=== PATIENT | female | born 1950 | race Caucasian/White ===

== ENCOUNTER 2023-04-18 11:45 | Inpatient (IN) | payer MEDICARE, SELFPAY ==
[2023-04-15 21:00] VITALS: BP 98/64
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
[2023-04-15 21:12] LABS: % Basophils 0.2 % (0-2); % Eosinophils 1.7 % (0-6); % Immature Granulocytes 0.6 % (0-0.5); % Lymphocytes 8.2 % (20.5-51.1); % Neutrophils 80.3 % (42.2-75.2); Absolute Eosinophils 0.2 10^3/uL (0-0.7); Absolute Immature Granulocytes 0.1 10^3/uL (0-0.05); Absolute Lymphocytes 0.7 10^3/uL (1.2-3.4); Absolute Monocytes 0.8 10^3/uL (0.1-0.6); Absolute Neutrophils 7.1 10^3/uL (1.4-6.5); Hematocrit 33.8 % (37.0-47.0); Hemoglobin 11.4 g/dL (12.0-16.0); Mean Corp Hgb Conc. 33.7 g/dL (33.0-37.0); Mean Corpuscular Hgb 30.3 pg (27.0-31.0); Mean Corpuscular Volume 89.9 fL (81.0-99.0); Mean Platelet Volume 10.1 fL (7.4-10.4); Nucleated Red Blood Cells % 0 %; Platelet Count 283 10^3/uL (130-400); Red Blood Cell Count 3.76 10^6/uL (4.20-5.40); Red Cell Dist. Width 14.7 % (11.5-14.5); White Blood Cell Count 8.8 10^3/uL (4.8-10.8)
[2023-04-15 21:35] LABS: ALT (SGPT) 169 U/L (0-35); AST (SGOT) 198 U/L (14-36); Albumin 3.4 g/dl (3.5-5.0); Alkaline Phosphatase 131 U/L (38-126); Blood Urea Nitrogen 18 mg/dl (7-17); Calcium 9.3 mg/dl (8.4-10.2); Carbon Dioxide 25 mmol/L (22-30); Chloride 104 mmol/L (98-107); Glucose 123 mg/dl (70-99); Potassium 3.6 mmol/L (3.5-5.1); Sodium 136 mmol/L (135-145); Total Bilirubin 0.7 mg/dl (0.2-1.3); Total Protein 6.8 g/dl (6.3-8.2); eGFR > 60.00
[2023-04-15 22:00] VITALS: BP 99/66
[2023-04-15 22:02] LABS: Urine Albumin Trace (Neg - Trace); Urine Bilirubin 1+ (Negative); Urine Character Very Cloudy (Clear); Urine Color Yellow; Urine Glucose Negative (Negative); Urine Ketone Trace (Negative); Urine Leukocyte Trace (Negative); Urine Nitrite Negative (Negative); Urine Occult Blood Negative (Negative); Urine Urobilinogen 1+ (Neg - 1+)
[2023-04-15 22:08] LABS: Urine Bacteria Many (Negative); Urine Red Blood Cell 0-2 /HPF (0-2); Urine White Cell 0-2 /HPF (0-5)
[2023-04-15 22:45] VITALS: BP 102/58
--- NOTE | 2023-04-15 22:52 | HPS.HSE ---
Addendum entered and electronically signed by Juanito Jacinto MD 04/16/23 00:27:
I saw and examined the patient.
The CHIP LOFT WORKER or PA's note was reviewed and I agree with the note.
Comment:
Patient is 72 years old with history of COPD, chronic respiratory failure, diabetes, GERD who came to the ER with a change in status.
[facility]
X-ray shows concern for pneumonia but the patient denies coughing, no recent fever or chills.
Was given Zithromax and Rocephin in the ER.
Physical exam:
GENERAL : Patient is awake, alert, oriented x3
HEENT: Nonicteric sclerae, PERRLA, EOMI. Oropharynx clear. Moist mucous membranes. Conjunctivae appear well perfused.
CHEST: Chest wall is nontender.
HEART: Regular rate and rhythm without murmurs.
LUNGS: Diminished breath sound bilateral
ABDOMEN: Soft, positive bowel sounds, nontender, no organomegaly.
RECTAL: Deferred.
SKIN: No rash, no excessive bruising, petechiae, or purpura.
NEUROLOGIC: Cranial nerves II-XII intact without motor/sensory deficit
Assessment/plan.
Acute metabolic cephalopathy possible secondary to hypoxia.
Treated for pneumonia but patient does not have clinical sign of pneumonia.
Continue Zithromax and Rocephin for now.
Elevated LFTs.
Ammonia level pending.
History of hyperlipidemia
Continue statin
Original Note:
Family Physician
-
Family Physician: Kylie Greenwood
Chief Complaint
-
sob
History of Present Illness
72 year old with PMH for chronic respiratory failure, COPD< DM, GERD, presented to us with change in MS. she was sent in due to confusion. she was taking [facility] oxygen off at [facility]. at present she is oriented. she knows where she is. she is able
to answer questions appropriately. patient denied BRUNER, dizzy or syncopal episode. denied fever, chills, runny nose congestion, cough. denied abdominal pain, nv,d. denied dysuria or hematuria. stated sob with activity. she uses 5l baseline at nursing
home.
chest x ray with mild pneumonia. received ceftriaxone and zithro in ER. admitting for further management.
Medical History
Past Medical History
Past Medical History: Reports Other
Additional Past Medical History:
COPD, Hypercholesterolemia and Hypothyroidism
Past Surgical History: Reports Other
Additional Past Surgical History:
cataract surgery
Social History
Tobacco: Former Smoker
Alcohol: None
Drug: None
Living: Senior Living
Family History
Family History: Not pertinent
Allergies / Home Medications
Allergies reflects when Allergies were last updated in [email or web address].
Home Medications with original date entered in [email or web address]
Allergy/Medication List:
Allergies
Allergy/AdvReac Type Severity Reaction Status Date / Time
banana Allergy 'shakes Verified 06/17/22 07:07
real bad'
tetracycline Allergy 'pass out Verified 06/17/22 07:07
and shake'
Home Medications
alendronate 70 mg tablet (Fosamax) 70 mg PO SA OSTEOPOROSIS 06/17/22
alprazolam 0.5 mg tablet (Xanax) 0.5 mg PO TID Mental Health/Anxiety 06/17/22
atorvastatin 80 mg tablet (Lipitor) 80 mg PO HS High cholesterol 06/17/22
cyanocobalamin (vitamin B-12) 1,000 mcg tablet 1,000 mcg PO DAILY Supplement 06/17/22
fluticasone fur. 100 mcg-umeclid 62.5 mcg-vilant 25 mcg inhalat.powder (Trelegy Ellipta) 1 inh inhalation R DAILY Lung/breathing issues 06/17/22
folic acid 1 mg tablet 1 mg PO DAILY Supplement 06/17/22
guaifenesin 100 mg/5 mL oral liquid 200 mg PO Q6HPRN PRN cough 06/17/22
levothyroxine 50 mcg tablet (Synthroid) 50 mcg PO DAILY Thyroid 06/17/22
loperamide 2 mg tablet 2 mg PO Q6HPRN PRN diarrhea 06/17/22
pantoprazole 40 mg tablet,delayed release (Protonix) 40 mg PO DAILY Gastrointestinal issue 06/17/22
potassium chloride 20 mEq tablet,extended release 20 meq PO DAILY Electrolyte Repletion 06/17/22
sertraline 100 mg tablet 100 mg PO DAILY Depression 06/17/22
acetaminophen 325 mg tablet (Tylenol) 650 mg PO Q6HPRN PRN mild pain/temp>100F 12/04/22
albuterol sulfate 90 mcg/actuation aerosol inhaler 2 puff inhalation R Q4HPRN PRN sob 12/04/22
cyclobenzaprine 10 mg tablet 10 mg PO BID 12/04/22
food supplemt, lactose-reduced 240 ea PO DAILY 12/04/22
mirtazapine 15 mg tablet (Remeron) 15 mg PO HS 12/04/22
trazodone 50 mg tablet 50 mg PO HS 12/04/22
Review of Systems
-
Constitutional: Reports No Symptoms
EENT: Reports No Symptoms
Respiratory: Reports No Symptoms and Trouble Breathing
Cardiac: Reports No Symptoms
Abdomen/GI: Reports No Symptoms
: Reports No Symptoms
Musculoskeletal: Reports No Symptoms
Skin: Reports No Symptoms
Neurological: Reports No Symptoms
Endocrine: Reports No Symptoms
Hematologic/Lymphatic: Reports No Symptoms
Psych: Reports No Symptoms
Physical Exam
Vital Signs
Vital Signs
Temp Pulse Resp BP Pulse Ox
98.4 F 91 19 99/66 94
04/15/23 20:59 04/15/23 22:45 04/15/23 22:45 04/15/23 22:00 04/15/23 22:45
Physical Exam
General: Well Developed, Well Nourished and No Apparent Distress
HEENT: NormoCephalic, Moist mucous membranes and Atraumatic
Respiratory: Clear
Cardiac: S1/S2 and Regular Rhythm; No Murmur or Rub
GI: Soft, Non Tender, Non Distended and Normal Bowel Sounds; No Organomegaly
Rectal: Deferred by Provider
Musculoskeletal: No Clubbing, No Cyanosis and No Edema
Skin: No Rash
Neuro: AO x 3 and Nonfocal/grossly intact
Psych: Calm
Laboratory Results
-
04/15/23 21:06
04/15/23 21:06
Laboratory Results
Total Bilirubin 0.7 mg/dl (0.2-1.3) 04/15/23 21:06
AST 198 U/L (14-36) H 04/15/23 21:06
ALT 169 U/L (0-35) H 04/15/23 21:06
Alkaline Phosphatase 131 U/L (38-126) H 04/15/23 21:06
Data Reviewed
-
Diagnostic Radiology: Report Reviewed by me
Lab Data: Labs Reviewed by me
Impression/Plan
-
#metabolic encephalopathy likely from hypoxia from pulling oxygen concern for pneumonia but no clinical findings
-Chronic hypoxic respiratory failure uses 5l baseline
-hxt of COPD, not in acute exacerbation
-head CT with No acute intracranial abnormality noted.Mild atrophy. Stable wall
-chest x ray with Mild opacification of the right costophrenic angle concerning for pneumonia. Improved.Flattening of the diaphragms suggesting COPD. Improved.
-zithro and ceftriaxone continued
-Tylenol prn for fever
-ctm
-continue supplemental oxygen to keep sat >92
-wean as tolerated
-nebs prn for sob/wheezing
#acute on chronic elevated LFTs unclear cause
-ast 198,alt 169, alk 131
-obtain ammonia level
-denied abdominal pain
-continue trend LFT's
Hypercholesterolemia
-Continue statin
#anxiety
-Xanax prn
-Remeron, sertraline, trazodone continued
Hypothyroidism
-Continue levothyroxine check TSH
#DVT prophylaxis with Lovenox
#DNR
[2023-04-15] MEDS: ZITHROMAX INFUSION 250 IV (22:56)
[2023-04-15] MEDS: ROCEPHIN 1000 MG IV (22:56)
[2023-04-15 23:00] VITALS: BP 97/83
[2023-04-15 23:30] VITALS: BP 111/98
[2023-04-16 00:27] LABS: Ammonia < 9 umol/L (9-30)
[2023-04-16 00:58] VITALS: BP 94/77; BMI 13.1
[2023-04-16] MEDS: SYNTHROID 50 MCG PO (06:14)
[2023-04-16 06:58] LABS: Hematocrit 30.5 % (37.0-47.0); Hemoglobin 10.1 g/dL (12.0-16.0); Mean Corp Hgb Conc. 33.1 g/dL (33.0-37.0); Mean Corpuscular Hgb 29.8 pg (27.0-31.0); Mean Platelet Volume 10.1 fL (7.4-10.4); Platelet Count 274 10^3/uL (130-400); Red Blood Cell Count 3.39 10^6/uL (4.20-5.40); Red Cell Dist. Width 14.6 % (11.5-14.5); White Blood Cell Count 9.1 10^3/uL (4.8-10.8)
[2023-04-16 07:00] VITALS: BP 96/58
[2023-04-16 07:22] LABS: ALT (SGPT) 141 U/L (0-35); AST (SGOT) 148 U/L (14-36); Albumin 2.9 g/dl (3.5-5.0); Alkaline Phosphatase 122 U/L (38-126); Blood Urea Nitrogen 16 mg/dl (7-17); Calcium 8.7 mg/dl (8.4-10.2); Carbon Dioxide 23 mmol/L (22-30); Chloride 108 mmol/L (98-107); Estimated Creatinine Clearance 44 ml/min; Glucose 107 mg/dl (70-99); Potassium 3.7 mmol/L (3.5-5.1); Sodium 136 mmol/L (135-145); Total Bilirubin 0.4 mg/dl (0.2-1.3); eGFR > 60.00
[2023-04-16] MEDS: SYMBICORT 80/4.5 MCG INHALER 2 PUFF INH ×2 (07:38→19:09)
[2023-04-16] MEDS: SPIRIVA RESPIMAT 2.5 MCG 2 PUFF INH (07:38)
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
[2023-04-16] MEDS: FLEXERIL 10 MG PO ×2 (08:07→21:59)
[2023-04-16] MEDS: PROTONIX 40 MG PO (08:07)
[2023-04-16] MEDS: KCL 20 MEQ PO (08:07)
[2023-04-16] MEDS: ZOLOFT 100 MG PO (08:08)
[2023-04-16 10:46] VITALS: BMI 13.1
--- NOTE | 2023-04-16 11:25 | W.PN.HOSP.TC ---
Today's Communication/Plan
-
AB
Speech eval
Hepatitis panel
Hold Statin
Follow LFTS
Assessment / Plan
Assessment / Plan
72-year-old with mental status change. Patient was taking her oxygen off at group home she uses 2 L of oxygen at group home
Cachectic
CVS S1 S2 Normal
Chest decreased
Awake and alert
Pleasant confused.
# TME- possibly from hypoxia
Ammonia level less than [address] without any acute changes-mild atrophy
#Chest x-ray with opacification of right CP angle concerning for pneumonia
Continue Zithromax and ceftriaxone
Speech evaluation
Oxygen supplementation
Aspiration precautions
As needed nebulizer treatments, also on Trelegy Ellipta
#History of COPD with chronic hypoxic respiratory failure on 2 L of oxygen at baseline
# Elevated LFTs-continue to follow trend
Ultrasound of the abdomen without any acute changes
Check hepatitis serologies
# Anemia likely from chronic disease
# Hyperlipidemia-hold statin
# Anxiety-depression
Continue Xanax as needed
Also on Remeron, sertraline, trazodone
# Hypothyroidism-continue Synthroid
# GERD-PPI
# Cognitive dysfunction- per KIRSTEN
# Diet-controlled diabetes
# Insomnia on trazodone
# Osteoporosis on Fosamax
# Hypoalbuminemia
# Ex Smoker
# DVT prophylaxis-Lovenox
# DNR status
Called brother spoke to KIRSTEN , updated.
Anticipated Discharge: 24 - 48 hours
Subjective/Interval History
-
Date of Service: April 16, 2023
Objective Data
-
Labs:
Laboratory Results
04/16/23
06:24
WBC 9.1
Hgb 10.1 L
Hct 30.5 L
Plt Count 274
Sodium 136
Potassium 3.7
Chloride 108 H
Carbon Dioxide 23
BUN 16
Creatinine 0.5 L
Glucose 107 H
Calcium 8.7
Total Bilirubin 0.4
AST 148 H
ALT 141 H
Alkaline Phosphatase 122
Vital Signs:
Vital Signs
Temp Pulse Resp BP Pulse Ox
98.2 F 86 20 96/58 98
04/16/23 07:00 04/16/23 08:01 04/16/23 08:01 04/16/23 07:00 04/16/23 08:01
--- NOTE | 2023-04-16 14:03 | PTOTSP ---
ST Dysphagia evaluation
Mild/functional oral dysphagia; edentulous. Has GERD dx; no reflux-like s/sx observed
Pt received awake/alert oriented x2-3 with visual cue. HOB raised upright for PO trials of puree, regular solids and thin liquids. PM meal at the bedside good appetite. Demo adequate oral access/containment, mildly extended yet effective mastication
and bolus was orally cleared. Thin liquids by straw sip swallow appears prompt. No overt s/sx of aspiration observed during this evaluation
Recommend
1. Continue regular solids/thin liquids
2. Standard aspiration and GERD precautions and meal set up assist as needed
3. Meds per pt preference and RN discretion
4. MEDICAL RECORDS MANAGER signing off please reconsult as needed
[2023-04-16 15:00] VITALS: BP 89/52
--- NOTE | 2023-04-16 15:10 | CM ---
Reviewed chart, placed a call to patient's brother and sister in law to obtain information for assessment. Patient's sister in law answered and stated that she could talk. 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
confirm a bed hold.
Per patient's sister in law, patient is dependent with her ADLs, personal care, dressing and bathing. She does not ambulate but does have a walker. She sleeps in a recliner.
Patient's sister in law confirmed that she would like for [facility] to [facility] to [facility] upon medical clearance and expressed that they have transportation. If they are unable to p/u will need to call obtain an ambulance.
Patient's sister in law requested that GOMEZ letter be emailed to her at [email or web address].
Plan: Case management will continue to follow and assist with discharge planning. Patient to return to [facility] when she is cleared medically.
[2023-04-16 15:19] LABS: Hepatitis B Surface Antigen Negative (Negative)
[2023-04-16 15:36] LABS: Hepatitis B Core Ab, Total Negative (Negative); Hepatitis B Surface Antibody Negative; Hepatitis C Antibody Negative (Negative)
[2023-04-16 17:03] LABS: Hepatitis A Antibody, Total Borderline (Negative)
[2023-04-16 17:51] LABS: Hepatitis A IgM Antibody Negative (Negative)
[2023-04-16] MEDS: LOVENOX 30 MG SC (17:55)
[2023-04-16] MEDS: DESYREL 50 MG PO (21:59)
[2023-04-16] MEDS: ROCEPHIN 1000 MG IV (21:59)
[2023-04-16] MEDS: STERILE WATER FOR INJECTION 10 ML IV (21:59)
[2023-04-16] MEDS: REMERON 15 MG PO (21:59)
[2023-04-16] MEDS: ZITHROMAX 500 MG PO (21:59)
[2023-04-16 23:44] VITALS: BP 100/59
[2023-04-17] MEDS: SYNTHROID 50 MCG PO (06:06)
[2023-04-17 07:37] LABS: Hematocrit 33.8 % (37.0-47.0); Hemoglobin 11.2 g/dL (12.0-16.0); Mean Corp Hgb Conc. 33.1 g/dL (33.0-37.0); Mean Corpuscular Hgb 29.9 pg (27.0-31.0); Mean Corpuscular Volume 90.4 fL (81.0-99.0); Platelet Count 288 10^3/uL (130-400); Red Blood Cell Count 3.74 10^6/uL (4.20-5.40); Red Cell Dist. Width 14.6 % (11.5-14.5); White Blood Cell Count 9.2 10^3/uL (4.8-10.8)
[2023-04-17 07:51] VITALS: BP 104/61
[2023-04-17 08:05] LABS: ALT (SGPT) 156 U/L (0-35); AST (SGOT) 166 U/L (14-36); Albumin 3.2 g/dl (3.5-5.0); Alkaline Phosphatase 146 U/L (38-126); Blood Urea Nitrogen 19 mg/dl (7-17); Calcium 9.1 mg/dl (8.4-10.2); Carbon Dioxide 23 mmol/L (22-30); Chloride 107 mmol/L (98-107); Estimated Creatinine Clearance 44 ml/min; Glucose 73 mg/dl (70-99); Potassium 3.9 mmol/L (3.5-5.1); Sodium 138 mmol/L (135-145); Total Bilirubin 0.6 mg/dl (0.2-1.3); Total Protein 6.3 g/dl (6.3-8.2); eGFR > 60.00
[2023-04-17] MEDS: SYMBICORT 80/4.5 MCG INHALER 2 PUFF INH ×2 (08:37→18:29)
[2023-04-17] MEDS: SPIRIVA RESPIMAT 2.5 MCG 2 PUFF INH (08:37)
[2023-04-17] MEDS: FLEXERIL 10 MG PO ×2 (09:19→21:22)
[2023-04-17] MEDS: KCL 20 MEQ PO (09:20)
[2023-04-17] MEDS: ZOLOFT 100 MG PO (09:20)
[2023-04-17] MEDS: PROTONIX 40 MG PO (09:20)
--- NOTE | 2023-04-17 11:27 | W.PN.HOSP.TC ---
Today's Communication/Plan
-
GI eval
CT A/P
Assessment / Plan
Assessment / Plan
72-year-old with mental status change. Patient was taking her oxygen off at senior living she uses 2 L of oxygen at senior living
Cachectic
CVS S1 S2 Normal
Chest decreased
Awake and alert
Pleasant confused.
# TME- possibly from hypoxia
Ammonia level less than [address] without any acute changes-mild atrophy
#Chest x-ray with opacification of right CP angle concerning for pneumonia
Continue Zithromax and stop ceftriaxone
Speech evaluation
Oxygen supplementation still on 2 L
Aspiration precautions
As needed nebulizer treatments, also on Trelegy Ellipta
#History of COPD with chronic hypoxic respiratory failure on 2 L of oxygen at baseline
# Elevated LFTs-continue to follow trend
Ultrasound of the abdomen without any acute changes
Hepatitis serologies- Neg
GI eval
# Anemia likely from chronic disease
# Hyperlipidemia-hold statin
# Anxiety-depression
Continue Xanax as needed
Also on Remeron, sertraline, trazodone
# Hypothyroidism-continue Synthroid
# GERD-PPI
# Cognitive dysfunction- per KIRSTEN
# Severe Protein Calorie Malnutrition
# Diet-controlled diabetes
# Insomnia on trazodone
# Osteoporosis on Fosamax
# Hypoalbuminemia
# Ex Smoker
# DVT prophylaxis-Lovenox
# DNR status
Anticipated Discharge: Within 24 hours
Subjective/Interval History
-
Date of Service: April 17, 2023
Objective Data
-
Labs:
Laboratory Results
04/17/23
07:09
WBC 9.2
Hgb 11.2 L
Hct 33.8 L
Plt Count 288
Sodium 138
Potassium 3.9
Chloride 107
Carbon Dioxide 23
BUN 19 H
Creatinine 0.6
Glucose 73
Calcium 9.1
Total Bilirubin 0.6
AST 166 H
ALT 156 H
Alkaline Phosphatase 146 H
Vital Signs:
Vital Signs
Temp Pulse Resp BP Pulse Ox
97.9 F 88 20 104/61 96
04/17/23 07:51 04/17/23 08:45 04/17/23 08:45 04/17/23 07:51 04/17/23 08:45
I&O
04/16/23 04/17/23 04/18/23
06:59 06:59 06:59
Intake Total 480 / 480
Balance 480 / 480
--- NOTE | 2023-04-17 11:47 | CON.GI ---
Addendum entered and electronically signed by Abhijeet Witt MD 04/18/23 08:38:
I saw and examined the patient. Pt seen on 04/18/23 at 6:45 am
The [employer] or PA's note was reviewed and I agree with the note.
Comment:
This patient is a 72-year-old woman who was sent from her nursing facility due to change in mental status. She been found taking off her oxygen at the time. We are being called for abnormal liver test with transaminases in the 100 range and a
mildly elevated alkaline phosphatase.. The patient denies any liver abnormalities or diseases in the past. She does state that she believes she may have had elevated test in the past. She is completely oriented. She did have both an ultrasound
and CAT scan in the hospital which did not show any issues with the liver. Her ammonia is normal.
abd: soft, nontender, no hepatomegaly
oriented
Impression:
change in mental status
abnormal lfts
plan:
1. change in MS resolved and not likely due to liver issues
2. abnl liver test: likely chronic, full w/u sent
normal iron studies back, hep A igM back others pending
can f/u with primary or outpatient for this.
will sign off call with questions.
Original Note:
Consultation
-
Date/Time Consultation Requested: 04/17/23
Date/Time Consultation Performed: 04/17/23 @ 11:45
Requesting Provider: Dr. Rodas
Performing Provider: DAPHNEY Almanza; Dr. Witt
Reason for Consultation: abnormal LFT's
Medical History
Chief Complaint / HPI
Chief Complaint: taking off oxygen, acute mental status change
History of Present Illness:
The patient is a 72-year-old female with a past medical history significant for chronic COPD/chronic respiratory failure on chronic oxygen at 2 L, GERD, type 2 diabetes, osteoporosis, hyperlipidemia, hypothyroidism, depression, anxiety, who
presented to the emergency room from her nursing facility with altered mental status. We are being asked to evaluate for abnormal LFTs. The patient is somewhat confused therefore the medical records were utilized for the HPI. She presented from
her nursing facility with increased confusion after being found to be repeatedly taking off her oxygen which she wears chronically. The patient denies any history of liver disease such as fatty liver, liver cirrhosis, or hepatitis. She denies any
abdominal pain, fevers, or chills. She does not recall feeling unwell prior to coming to the emergency room. She does note that she was confused and is forgetful of the events leading up to her hospitalization she otherwise denies any
constipation, diarrhea, melena, hematochezia, hematemesis, chest pain, shortness of breath, dysphagia, nausea, or vomiting. She notes that she can get nauseated with certain medications and will occasionally vomit but no recent symptoms. She
reports that her weight does fluctuate and she has been on the smaller side chronically. She denies any alcohol use. She is a former smoker and quit 5 years ago. She reports her last colonoscopy was several years ago but does not remember where
this was done. Admits to history of polyps. She denies any new medications or recent antibiotic use prior to admission. Upon evaluation in the emergency room she was oriented to herself and able to answer questions appropriately. She underwent
CT imaging of the head which was negative for acute intracranial abnormalities. Her ammonia level was less than 9 on admission. She underwent a chest x-ray which showed questionable pneumonia and was started on azithromycin and ceftriaxone. She
also underwent an ultrasound of the abdomen for abnormal LFTs which was unrevealing. Hepatitis serologies were sent which were negative. Her urinalysis was also negative. Notable labs include total bilirubin 0.6, AST 166, ALT 158, alk phos 146,
BUN 19, creatinine 0.6, albumin 3.2, WBC 9.2, hemoglobin 11.2, platelets 288,000, sodium 138, potassium 3.9. She is pending CT of the abdomen and pelvis with IV and oral contrast for further evaluation. Notable with a BMI of 13.1
Past Medical History
Past Medical History: COPD (Chronic respiratory failure on chronic oxygen), GERD, HTN, Hypercholesterolemia, NIDDM, Psychiatric (Depression/anxiety) and Other (Osteoporosis)
Past Surgical History: Orthopedic (Bilateral hip replacement) and Other (Cataract surgery)
Social History
Tobacco: Former Smoker
Alcohol: None
Drug: None
Living: Shelter
Family History
Family History: Reviewed & Not Pertinent
Allergies / Home Medications
Allergy/AdvReac Type Severity Reaction Status Date / Time
banana Allergy 'shakes Verified 06/17/22 07:07
real bad'
tetracycline Allergy 'pass out Verified 06/17/22 07:07
and shake'
Medication Instructions Recorded
alendronate 70 mg tablet (Fosamax) 70 mg PO SA OSTEOPOROSIS 06/17/22
alprazolam 0.5 mg tablet (Xanax) 0.5 mg PO TID Mental Health/Anxiety 06/17/22
atorvastatin 80 mg tablet (Lipitor) 80 mg PO HS High cholesterol 06/17/22
cyanocobalamin (vitamin B-12) 1,000 mcg PO DAILY Supplement 06/17/22
1,000 mcg tablet
fluticasone fur. 100 mcg-umeclid 1 inh inhalation R DAILY 06/17/22
62.5 mcg-vilant 25 mcg Lung/breathing issues
inhalat.powder (Trelegy Ellipta)
folic acid 1 mg tablet 1 mg PO DAILY Supplement 06/17/22
guaifenesin 100 mg/5 mL oral liquid 200 mg PO Q6HPRN PRN cough 06/17/22
levothyroxine 50 mcg tablet 50 mcg PO DAILY AT 0700 Thyroid 06/17/22
(Synthroid)
loperamide 2 mg tablet 2 mg PO Q6HPRN PRN diarrhea 06/17/22
pantoprazole 40 mg tablet,delayed 40 mg PO DAILY Gastrointestinal 06/17/22
release (Protonix) issue
potassium chloride 20 mEq 20 meq PO DAILY Electrolyte 06/17/22
tablet,extended release Repletion
sertraline 100 mg tablet 100 mg PO DAILY Depression 06/17/22
acetaminophen 325 mg tablet 650 mg PO Q6HPRN PRN mild 12/04/22
(Tylenol) pain/temp>100F
albuterol sulfate 90 mcg/actuation 2 puff inhalation R Q4HPRN PRN sob 12/04/22
aerosol inhaler
cyclobenzaprine 10 mg tablet 10 mg PO BID Muscle Spasms 12/04/22
food supplemt, lactose-reduced 240 ea PO DAILY Supplement 12/04/22
mirtazapine 15 mg tablet (Remeron) 15 mg PO HS mental health/sleep 12/04/22
trazodone 50 mg tablet 50 mg PO HS mental health/sleep 12/04/22
Review of Systems
-
History Source: Patient
Constitutional: Reports No Symptoms
EENT: Reports No Symptoms
Respiratory: Reports Trouble Breathing (Chronic)
Cardiac: Reports No Symptoms
Abdomen/GI: Reports Nausea (Occasional) and Vomiting (Occasional)
: Reports No Symptoms
Musculoskeletal: Reports No Symptoms
Skin: Reports No Symptoms
Neurological: Reports No Symptoms
Vital Signs
Temp Pulse Resp BP Pulse Ox
97.9 F 88 20 104/61 96
04/17/23 07:51 04/17/23 08:45 04/17/23 08:45 04/17/23 07:51 04/17/23 08:45
Physical Exam
Exam
General: Comfortable and Other (Cachectic, chronically ill-appearing female in no acute distress)
HEENT: Normocephalic, Anicteric and Atraumatic
Respiratory: Non Labored Respirations and Other (Diminished breath sounds bilaterally, supplemental O2 in place)
Cardiac: S1/S2 and Regular Rhythm
Breast: Deferred by me
GI: Soft, Non Tender, Non Distended, Normal Bowel Sounds and Flat
Musculoskeletal: No Edema
Skin: Warm and Dry
Neuro: Awake, Alert and Other (Oriented to self and time, disoriented to place)
Psych: Calm
Results
WBC 9.2 10^3/uL (4.8-10.8) 04/17/23 07:09
Hgb 11.2 g/dL (12.0-16.0) L 04/17/23 07:09
Hct 33.8 % (37.0-47.0) L 04/17/23 07:09
MCV 90.4 fL (81.0-99.0) 04/17/23 07:09
Plt Count 288 10^3/uL (130-400) 04/17/23 07:09
Absolute Neuts (auto) 7.1 10^3/uL (1.4-6.5) H 04/15/23 21:06
Sodium 138 mmol/L (135-145) 04/17/23 07:09
Potassium 3.9 mmol/L (3.5-5.1) 04/17/23 07:09
Chloride 107 mmol/L (98-107) 04/17/23 07:09
Carbon Dioxide 23 mmol/L (22-30) 04/17/23 07:09
BUN 19 mg/dl (7-17) H 04/17/23 07:09
Creatinine 0.6 mg/dL (0.6-1.0) 04/17/23 07:09
Calcium 9.1 mg/dl (8.4-10.2) 04/17/23 07:09
Total Bilirubin 0.6 mg/dl (0.2-1.3) 04/17/23 07:09
AST 166 U/L (14-36) H 04/17/23 07:09
ALT 156 U/L (0-35) H 04/17/23 07:09
Alkaline Phosphatase 146 U/L (38-126) H 04/17/23 07:09
Hepatitis A IgM Ab Negative (Negative) 04/16/23 06:24
Hepatitis A Ab Total Borderline (Negative) 04/16/23 06:24
Hep Bs Antibody Negative 04/16/23 06:24
Hep B Core Total Ab Negative (Negative) 04/16/23 06:24
Hep B Core IgM Ab Cancelled 04/16/23 06:24
Hepatitis C Antibody Negative (Negative) 04/16/23 06:24
Diagnostic Image Results:
04/15/23 CT head: no acute intracranial abnormalities
04/16/2023 Us abdomen: no acute abnormalities
Prior GI Procedures:
EGD: None
Colonoscopy: Patient reports colonoscopy done in the last several years with history of polyps. Report not on file
Assessment / Plan
-
The patient is a 72-year-old female with a past medical history significant for chronic COPD/chronic respiratory failure on chronic oxygen at 2 L, GERD, type 2 diabetes, osteoporosis, hyperlipidemia, hypothyroidism, depression, anxiety, who
presented to the emergency room from her nursing facility with altered mental status. We are being asked to evaluate for abnormal LFTs. She had noted change of mental status taking her oxygen off at the nursing facility. ER workup showing
possible pneumonia on chest x-ray. CT of the brain was negative for acute findings. Ammonia level less than 9. Ultrasound imaging the abdomen did not show any significant findings. Noted with mildly elevated AST, ALT, and alk phos (with some
chronicity of elevation in the past). Started on Zithromax and Rocephin for pneumonia. Hepatitis serologies negative. UA negative. No prior history of liver disease, alcohol use, or hepatitis per patient.
Problem list:
-Altered mental status
-Abnormal LFTs
-Chest x-ray with findings concerning for pneumonia
-Severe calorie deficit/malnutrition
-Chronic COPD/respiratory failure on chronic oxygen
Other pertinent medical history:
-Hyperlipidemia
-Hypothyroidism
-Depression/anxiety
-GERD
-Type 2 diabetes
-Osteoporosis
Recommendations:
-Etiology of abnormal LFTs unclear. There does appear to be somewhat chronic elevation of LFTs. Possibly related to severe malnutrition versus underlying liver disease versus acute elevation with infectious process versus other.
--- Ultrasound of the abdomen showing no abnormalities of the liver or biliary system. She declines any history of hepatitis or alcohol use.
-Await CT imaging of the abdomen and pelvis
-Will add underlying liver disease workup
-Hepatitis serologies negative
-Avoid hepatotoxins as able
-Will likely need further workup outpatient.
-Infectious workup and management as per hospitalist
-Consider ABG with history of COPD if ongoing confusion, defer to hospitalist
-Consider nutrition consult with BMI of 13. Likely in part related to her chronic lung disease
-Will follow
-
-
Thank you for consultation and allowing me to participate in the patient's care. Please call the director phone GI physician during the after hours with any questions or concerns.
[2023-04-17] MEDS: OMNIPAQUE 50 ML PO (12:08)
[2023-04-17 14:30] LABS: Iron 52 ug/dl (37-170)
[2023-04-17 14:39] LABS: Percent Saturation 23 % (20-50); Total Iron Binding Capacity 226 ug/dl (265-497)
[2023-04-17 16:29] VITALS: BP 108/64
[2023-04-17] MEDS: LOVENOX 30 MG SC (17:45)
[2023-04-17] MEDS: XANAX 0.5 MG PO (17:48)
[2023-04-17] MEDS: CEFTIN 500 MG PO (21:22)
[2023-04-17] MEDS: DESYREL 50 MG PO (21:22)
[2023-04-17] MEDS: ZITHROMAX 500 MG PO (21:22)
[2023-04-17] MEDS: REMERON 15 MG PO (21:22)
[2023-04-17 23:35] VITALS: BP 104/56
[2023-04-18 06:07] VITALS: BMI 12.7
[2023-04-18] MEDS: SYNTHROID 50 MCG PO (06:14)
[2023-04-18 06:31] VITALS: BMI 12.7
[2023-04-18 07:26] VITALS: BP 91/60
[2023-04-18] MEDS: SYMBICORT 80/4.5 MCG INHALER 2 PUFF INH ×2 (07:53→20:04)
[2023-04-18] MEDS: SPIRIVA RESPIMAT 2.5 MCG 2 PUFF INH (07:53)
[2023-04-18] MEDS: PROTONIX 40 MG PO (08:33)
[2023-04-18] MEDS: FLEXERIL 10 MG PO ×2 (08:33→20:16)
[2023-04-18] MEDS: KCL 20 MEQ PO (08:33)
[2023-04-18] MEDS: ZOLOFT 100 MG PO (08:33)
[2023-04-18] MEDS: CEFTIN 500 MG PO ×2 (08:33→20:16)
[2023-04-18 09:08] LABS: Direct Bilirubin 0.2 mg/dl (0.0-0.4)
[2023-04-18 11:05] VITALS: BP 94/57; PULSE 84; O2SAT 99
--- NOTE | 2023-04-18 11:42 | W.PN.HOSP.TC ---
Today's Communication/Plan
-
Discharge
Assessment / Plan
Assessment / Plan
72-year-old with mental status change. Patient was taking her oxygen off [facility] she uses 2 L [facility] oxygen [facility]
Cachectic
CVS S1 S2 Normal
Chest decreased
Awake and alert
Pleasant confused.
# TME- possibly from hypoxia
Back to baseline
Ammonia level less than [address] without any acute changes-mild atrophy
#Chest x-ray with opacification of right CP angle concerning for pneumonia
Continue Zithromax and Ceftin for 3 more days
Speech evaluation noted regular diet
Oxygen supplementation still on 2 L, Was on [address]
Sats 97-99 percent
As needed nebulizer treatments, also on Trelegy Ellipta
#History of COPD with chronic hypoxic respiratory failure on 2 L of oxygen at baseline
# Elevated LFTs-
Ultrasound of the abdomen without any acute changes
Hepatitis serologies- Neg
CT scan without any acute changes
Serologies sent for liver
Hold off on statin until LFTs are better
GI eval
# Anemia likely from chronic disease
# Hyperlipidemia-hold statin
# Anxiety-depression
Continue Xanax as needed
Also on Remeron, sertraline, trazodone
# Hypothyroidism-continue Synthroid
# GERD-PPI
# Cognitive dysfunction- per KIRSTEN
# Severe Protein Calorie Malnutrition
[id number] is aware and then states that patient's brother and [id number] have been battling this with the patient. She always ate very poorly.
Ensure for discharge
# Diet-controlled diabetes
# Insomnia on trazodone
# Osteoporosis on Fosamax
# Hypoalbuminemia
# Ex Smoker
# DVT prophylaxis-Lovenox
# DNR status
Discussed with nursing
Discussed with [id number]
Discussed with GI jamil for discharge and outpatient follow-up
D/W Case management
Discussed the patient regarding eating better and follow-up needs.
Discharge time more than 30 minutes
Anticipated Discharge: Today
Subjective/Interval History
-
Date of Service: April 18, 2023
Objective Data
-
Vital Signs:
Vital Signs
Temp Pulse Resp BP Pulse Ox
98 F 74 16 91/60 97
04/18/23 07:26 04/18/23 07:56 04/18/23 07:56 04/18/23 07:26 04/18/23 07:56
I&O
04/17/23 04/18/23 04/19/23
06:59 06:59 06:59
Intake Total 480 / 480 540 / 540
Balance 480 / 480 540 / 540
--- NOTE | 2023-04-18 11:53 | W.DS.TRANS ---
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
-
Discharge Instructions:
Discharge Diagnosis/Procedures TME, hypoxia, pneumonia, COPD, elevated LFTs,
anemia, hyperlipidemia, anxiety depression,
hypothyroidism, GERD, cognitive dysfunction,
severe protein calorie malnutrition, diet-
controlled diabetes, insomnia, osteoporosis,
hypoalbuminemia, spinal canal stenosis L4-L5
with broad-based posterior disc bulge
Diet As tolerated
Activity As tolerated
Driving Restrictions No driving
Others Tests Chest x-ray weeks 4
Other Services PT,OT
Instructions:
Stand-Alone Forms:
Changes to Home Medications: Yes
Discharge Medications:
DC Medications w/original date entered in [employer]
alendronate 70 mg tablet (Fosamax) 70 mg PO SA OSTEOPOROSIS 06/17/22
cyanocobalamin (vitamin B-12) 1,000 mcg tablet 1,000 mcg PO DAILY Supplement 06/17/22
fluticasone fur. 100 mcg-umeclid 62.5 mcg-vilant 25 mcg inhalat.powder (Trelegy Ellipta) 1 inh inhalation R DAILY Lung/breathing issues 06/17/22
folic acid 1 mg tablet 1 mg PO DAILY Supplement 06/17/22
guaifenesin 100 mg/5 mL oral liquid 200 mg PO Q6HPRN PRN cough 06/17/22
levothyroxine 50 mcg tablet (Synthroid) 50 mcg PO DAILY AT 0700 Thyroid 06/17/22
pantoprazole 40 mg tablet,delayed release (Protonix) 40 mg PO DAILY Gastrointestinal issue 06/17/22
potassium chloride 20 mEq tablet,extended release 20 meq PO DAILY Electrolyte Repletion 06/17/22
sertraline 100 mg tablet 100 mg PO DAILY Depression 06/17/22
acetaminophen 325 mg tablet (Tylenol) 650 mg PO Q6HPRN PRN mild pain/temp>100F 12/04/22
albuterol sulfate 90 mcg/actuation aerosol inhaler 2 puff inhalation R Q4HPRN PRN sob 12/04/22
cyclobenzaprine 10 mg tablet 10 mg PO BID Muscle Spasms 12/04/22
food supplemt, lactose-reduced 240 ea PO DAILY Supplement 12/04/22
mirtazapine 15 mg tablet (Remeron) 15 mg PO HS mental health/sleep 12/04/22
trazodone 50 mg tablet 50 mg PO HS mental health/sleep 12/04/22
alprazolam 0.5 mg tablet 0.5 mg PO TID PRN anxiety #6 tabs 04/18/23
azithromycin 250 mg tablet 500 mg PO HS Lung/breathing issues #2 tabs 04/18/23
cefuroxime axetil 500 mg tablet 500 mg PO BID Lung/breathing issues #6 tabs 04/18/23
Home Medication Changes
Statin stopped temporarily
Zithromax Ceftin new
Pending Results: Yes
Additional Pending Results:
Serologies for liver pending, Ceruloplasmin and pending
[2023-04-18] MEDS: MILK OF MAGNESIA 30 ML PO (12:39)
--- NOTE | 2023-04-18 13:04 | CM ---
Addendum entered by Padma Granda 04/18/23 13:13:
Ref # [id number] for attempted auth
Original Note:
Pt medically ready to return to [facility]
Kristina at [facility] made aware
PT recs SNF vs HH - SNF bed available at [facility]
NPI - [id number]
Attending Carlos Leal - NPI - [id number]
Called [facility] to obtain auth - [phone]
utility agent not available on weekend - unable to obtain auth until normal business hours
[2023-04-18 15:43] VITALS: BP 103/67
[2023-04-18] MEDS: LOVENOX 30 MG SC (18:05)
[2023-04-18] MEDS: XANAX 0.5 MG PO (18:12)
[2023-04-18] MEDS: DESYREL 50 MG PO (21:14)
[2023-04-18] MEDS: ZITHROMAX 500 MG PO (21:14)
[2023-04-18] MEDS: REMERON 15 MG PO (21:14)
[2023-04-18 23:35] VITALS: BP 88/47
[2023-04-19] MEDS: TYLENOL 650 MG PO (05:01)
[2023-04-19] MEDS: SYNTHROID 50 MCG PO (05:01)
[2023-04-19 05:59] LABS: IgA 424 mg/dl (70-400)
[2023-04-19 07:00] VITALS: BP 94/57
[2023-04-19] MEDS: CEFTIN 500 MG PO ×2 (07:58→20:52)
[2023-04-19] MEDS: FLEXERIL 10 MG PO ×2 (07:58→20:52)
[2023-04-19] MEDS: PROTONIX 40 MG PO (07:58)
[2023-04-19] MEDS: ZOLOFT 100 MG PO (07:58)
[2023-04-19] MEDS: KCL 20 MEQ PO (07:58)
[2023-04-19] MEDS: SYMBICORT 80/4.5 MCG INHALER 2 PUFF INH ×2 (08:05→20:01)
[2023-04-19] MEDS: SPIRIVA RESPIMAT 2.5 MCG 2 PUFF INH (08:05)
--- NOTE | 2023-04-19 10:15 | W.PN.HOSP.TC ---
Addendum entered and electronically signed by Anu Santiago MD 04/19/23 15:46:
Total DC time 45 minutes
Original Note:
Today's Communication/Plan
-
DC today
Assessment / Plan
Assessment / Plan
72-year-old with mental status change. Patient took her oxygen off at [facility]. She uses 2 L of oxygen at [facility]
Cachectic
CVS S1 S2 Normal
Chest decreased
Awake and alert
Pleasant confused.
A/P:
# TME due to hypoxia
# Chronic hypoxic resp failure on 2L [place]
Replaced O2 2L [place], MS back to baseline
Ammonia level less than [address] without any acute changes-mild atrophy
# CAP
CXR noted Mild opacification of the right costophrenic angle concerning for pneumonia. Improved.
MRSA screen negative
cont Abx total 7 days, cont Zithromax and Ceftin for now
Speech evaluation cleared for regular diet
cont as needed nebulizer treatments, also on Trelegy Ellipta
# History of COPD with chronic hypoxic respiratory failure on 2 L of oxygen at baseline
# Elevated LFTs
Ultrasound of the abdomen without any acute changes
CT AP without any acute changes
Hepatitis serologies- Neg
Liver antibodies can be followed up outpt
Hold off on statin until LFTs are better, check LFT outpt
GI eval
# Chronic Hypotension
Start midodrine 5 mg TID for SBP < 100
# Anemia likely from chronic disease
# Hyperlipidemia-hold statin
# Anxiety/depression
Continue Xanax as needed
Also on Remeron, sertraline, trazodone
# Hypothyroidism-continue Synthroid
# GERD-PPI
# Cognitive dysfunction- per KIRSTEN
# Severe Protein Calorie Malnutrition
Eqbubg-em-zio is aware and then states that patient's brother and [id number]-ak-jyn have been battling this with the patient. She always ate very poorly.
Ensure for discharge
# Diet-controlled diabetes
# Insomnia on trazodone
# Osteoporosis on Fosamax
# Hypoalbuminemia
# Ex Smoker
DVT prophylaxis-Lovenox
DNR status
Discussed with RN
Discussed with [id number]-[id number], updated on the phone
D/W Case management
Anticipated Discharge: Today
Subjective/Interval History
-
Date of Service: April 19, 2023
Objective Data
-
Vital Signs:
Vital Signs
Temp Pulse Resp BP Pulse Ox
36.7 C 76 18 94/57 92
04/19/23 07:00 04/19/23 08:12 04/19/23 08:12 04/19/23 07:00 04/19/23 08:12
I&O
04/18/23 04/19/23 04/20/23
06:59 06:59 06:59
Intake Total 540 / 540 420 / 420
Balance 540 / 540 420 / 420
--- NOTE | 2023-04-19 11:22 | CM ---
Addendum entered by HAROON Meneses 04/19/23 16:46:
Placed a call to patient's insurance and was provided with the reference # [id number] by a credit representative named Shadi. He stated that an RN will call for clinical.
Addendum entered by HAROON Meneses 04/19/23 11:44:
Received return call from admissions at [facility] (Kristina) who stated that patient was independent with her ADLs at the facility and therefore would like for her to be skilled prior to her readmission. Will attempt to obtain prior authorization.
Original Note:
Received notification from attending that patient is medically cleared for discharge. Reviewed CM note from yesterday. Placed a call to assistant sales director, at [facility] to clarify if patient needs an auth. If she is just returning to her apartment she
won't need one.
Plan: Case management will continue to follow and assist with discharge planning. Back to [facility] skilled or ltc, awaiting recommendation from director specialty.
[2023-04-19 15:00] VITALS: BP 95/55
--- NOTE | 2023-04-19 15:26 | W.DCSUMMARY ---
Discharge Summary
Discharge Data
Date of Admission: 04/18/23
Date of Discharge: 04/20/23
-
Pending Results: No
Hospital Course
Principal Diagnosis:
Confusion likely due to hypoxia and community-acquired pneumonia (CAP)
Transaminitis, unclear etiology, continue outpatient GI follow-up
Chronic Diagnoses:�
History of COPD with chronic hypoxic respiratory failure on 2 L of oxygen at baseline
Anemia likely from chronic disease
Hyperlipidemia
Anxiety/depression, on as needed Xanax, Remeron, sertraline, trazodone
Hypothyroidism on Synthroid
Gastroesophageal reflux disease
Cognitive impairment persistent low
Severe Protein Calorie Malnutrition
Diet-controlled diabetes
Insomnia on trazodone
Osteoporosis on Fosamax
Hypoalbuminemia
Ex Smoker
Consultations:�
None
Procedures:�
None
Clinical course:�
This is a 72-year-old female, with past medical history as stated above, who presented with confusion likely due to hypoxia and community-acquired pneumonia.
She was noted taking off her oxygen which she required at baseline.
Problem 1:
Confusion likely due to hypoxia and community-acquired pneumonia.
Of note, the patient has chronic hypoxic respiratory failure and is on 2 L nasal cannula oxygen support at baseline.
She was replaced back on 2 L nasal cannula oxygen support, and her mental status returned to baseline.
Her CT head obtained for confusion workup showed no acute changes, noted mild atrophy.
Her CXR noted mild opacification of the right costophrenic angle concerning for pneumonia.
Her MRSA screen was negative.
She received IV ceftriaxone and oral azithromycin while in the hospital and was discharged with oral Ceftin and azithromycin.
She was cleared by speech therapist to continue regular diet.
Problem 2:
Elevated LFTs.
Her abdominal ultrasound and CT AP showed no acute changes.
Her hepatitis serologies were negative.
Additional liver workup and blood tests (Alpha-1 antitrypsin, ceruloplasmin, IgA, CAITIE, ASMA, endomysial IgG, liver kidney microsomal antibody) were sent. These results are not back yet given they are send out tests.
The patient can follow these results with her PCP/GI outpatient.
She can hold off on statin until her LFTs better.
She can check her LFT outpatient in 1 week.
Problem 3:
Chronic Hypotension
She was started with midodrine 5 mg TID for SBP < 100.
As for the rest of her medical problems, they were stable during her hospital stay.
Discharge Plan
-
Patient Disposition: Group Home/SNF
Discharge Diagnosis/Procedures: Confusion due to hypoxia, community acquired pneumonia, elevated liver enzymes, severe protein calorie malnutrition
Condition: Fair
Diet: As tolerated
Additional Diets: with Ensure supplement 1 can twice daily
Activity: As tolerated
Driving Restrictions: No driving
Blood Work: LFT in 1 week, result to your PCP/GI
Others Tests: Chest x-ray weeks 4
Other Services: PT and OT
Activity Restrictions/Additional Instructions:
Follow up these blood work results outpatient (they were collected due to elevated liver enzymes):
Alpha-1 antitrypsin,
ceruloplasmin,
IgA,
CAITIE,
ASMA,
endomysial IgG,
liver kidney microsomal antibody
Follow-up with GI outpatient for your elevated LFT
Hold statin until LFTs are better.
Dietitian follow-up with long term
Continue Zithromax and Ceftin for 2 more days.
You were started with Midodrine as needed for BP support (take for SBP < 100)
Referrals:
Abhijeet Witt MD [Active] -
Kylie Greenwood MD [Family Provider] -
Additional Discharge Medication Instructions: stop Lipitor
Prescriptions:
New
azithromycin 250 mg Tablet
500 mg PO HS Qty: 2 0RF
alprazolam 0.5 mg Tablet
0.5 mg PO TID PRN (Reason: anxiety) Qty: 6 0RF
cefuroxime axetil 500 mg Tablet
500 mg PO BID Qty: 6 0RF
midodrine 5 mg Tablet
5 mg PO TIDPRN PRN (Reason: for SBP < 100) Qty: 30 0RF
Continued
alendronate [Fosamax] 70 mg Tablet
70 mg PO SA
sertraline 100 mg Tablet
100 mg PO DAILY
cyanocobalamin (vitamin B-12) 1,000 mcg Tablet
1,000 mcg PO DAILY
guaifenesin 100 mg/5 mL Liquid
200 mg PO Q6HPRN PRN (Reason: cough)
levothyroxine [Synthroid] 50 mcg Tablet
50 mcg PO DAILY AT 0700
pantoprazole [Protonix] 40 mg Tablet,Delayed Release (Dr/Ec)
40 mg PO DAILY
folic acid 1 mg Tablet
1 mg PO DAILY
potassium chloride 20 mEq Tablet Extended Release
20 meq PO DAILY
Trelegy Ellipta 100-62.5-25 mcg Blister With Device
1 inh INHALATION R DAILY
cyclobenzaprine 10 mg Tablet
10 mg PO BID
acetaminophen [Tylenol] 325 mg Tablet
650 mg PO Q6HPRN PRN (Reason: mild pain/temp>100F)
trazodone 50 mg Tablet
50 mg PO HS
mirtazapine [Remeron] 15 mg Tablet
15 mg PO HS
albuterol sulfate 90 mcg/actuation Hfa Aerosol Inhaler
2 puff INHALATION R Q4HPRN PRN (Reason: sob)
food supplemt, lactose-reduced Liquid
240 ea PO DAILY
Rx Instructions:
12/04/2022, patient is given 240 ml of this medication one time a day for diet supplement.
Discontinued
atorvastatin [Lipitor] 80 mg Tablet
80 mg PO HS
loperamide 2 mg Tablet
2 mg PO Q6HPRN PRN (Reason: diarrhea)
alprazolam [Xanax] 0.5 mg Tablet
0.5 mg PO TID
Discharge Orders:
Discharge Patient (As Directed); Ordered 04/18/23
Ordered By: Kymberly Rodas
[2023-04-19] MEDS: ProAmatine 5 MG PO (16:00)
[2023-04-19] MEDS: XANAX 0.5 MG PO (16:06)
[2023-04-19] MEDS: LOVENOX 30 MG SC (18:04)
[2023-04-19] MEDS: DESYREL 50 MG PO (20:54)
[2023-04-19] MEDS: REMERON 15 MG PO (20:54)
[2023-04-19] MEDS: ZITHROMAX 500 MG PO (20:54)
[2023-04-19 23:15] VITALS: BP 90/55
[2023-04-20] MEDS: SYNTHROID 50 MCG PO (06:02)
[2023-04-20 07:00] VITALS: BP 93/53
[2023-04-20] MEDS: SYMBICORT 80/4.5 MCG INHALER 2 PUFF INH (08:00)
[2023-04-20] MEDS: SPIRIVA RESPIMAT 2.5 MCG 2 PUFF INH (08:00)
[2023-04-20] MEDS: FLEXERIL 10 MG PO (09:04)
[2023-04-20] MEDS: ZOLOFT 100 MG PO (09:04)
[2023-04-20] MEDS: KCL 20 MEQ PO (09:05)
[2023-04-20] MEDS: CEFTIN 500 MG PO (09:05)
[2023-04-20] MEDS: PROTONIX 40 MG PO (09:05)
[2023-04-20] MEDS: XANAX 0.5 MG PO (09:19)
--- NOTE | 2023-04-20 09:45 | CM ---
Addendum entered by HAROON Meneses 04/20/23 12:52:
Left a voice mail message for patient's listed contact, Sylvain that patient is going back.
Addendum entered by HAROON Meneses 04/20/23 12:08:
Received return call back from Kristina at [facility] who stated that the # for report is [phone]
fax# is [phone]
Visual Stylist updated.
Addendum entered by HAROON Meneses 04/20/23 11:18:
Received notification from Daly at [facility] who stated that patient has been provided with auth# [id number] NRD 04/22/23 clinical should be faxed to [phone] Ref# is [id number]
Will update Kristina in admissions at [facility] and attending.
Original Note:
Received voice mail message from [facility] which stated that the following is needed: Clinical, face sheet, H&P, med list and progress notes as well as any PT/OT from the past two days.
Confirmation #[id number]
Faxed clinical [phone]
Will await determination
Plan: Case management will continue to follow and assist with discharge planning. Hopeful transfer to [facility] SNF upon authorization.
--- NOTE | 2023-04-20 10:58 | W.PN.HOSP.TC ---
Addendum entered and electronically signed by Anu Santiago MD 04/20/23 13:01:
total DC time 35 min
Addendum entered and electronically signed by Anu Santiago MD 04/20/23 12:36:
# �Acute metabolic Encephalopathy has resolved
Original Note:
Today's Communication/Plan
-
DC to SNF today
Assessment / Plan
Assessment / Plan
72-year-old with mental status change. Patient took her oxygen off at correction. She uses 2 L of oxygen at correction
A/P:
# TME due to hypoxia
# Chronic hypoxic resp failure on 2L NC
Replaced O2 2L NC, MS back to baseline
Ammonia level less than [address] without any acute changes-mild atrophy
# CAP
CXR noted Mild opacification of the right costophrenic angle concerning for pneumonia. Improved.
MRSA screen negative
cont Abx total 7 days, cont Zithromax and Ceftin for now
Speech evaluation cleared for regular diet
cont as needed nebulizer treatments, also on Trelegy Ellipta
# History of COPD with chronic hypoxic respiratory failure on 2 L of oxygen at baseline
# Elevated LFTs
Ultrasound of the abdomen without any acute changes
CT AP without any acute changes
Hepatitis serologies- Neg
Liver antibodies test results can be followed up outpt
Hold off on statin until LFTs are better, check LFT outpt
GI eval
# Chronic Hypotension
Started midodrine 5 mg TID for SBP < 100
BP soft likely due to cuff size too big (pt has severe malnutrition)
# Anemia likely from chronic disease
# Hyperlipidemia-hold statin
# Anxiety/depression
Continue Xanax as needed
Also on Remeron, sertraline, trazodone
# Hypothyroidism-continue Synthroid
# GERD-PPI
# Cognitive dysfunction- per KIRSTEN
# Severe Protein Calorie Malnutrition
Ewaopa-or-ksd is aware and then states that patient's brother and [id number] have been battling this with the patient. She always ate very poorly.
Ensure for discharge
# Diet-controlled diabetes
# Insomnia on trazodone
# Osteoporosis on Fosamax
# Hypoalbuminemia
# Ex Smoker
DVT prophylaxis-Lovenox
DNR status
Pt was discharged yesterday, but was kept in the hospital due to pending authorization.
D/W Case management
Anticipated Discharge: Today
Subjective/Interval History
-
Date of Service: April 20, 2023
Objective Data
-
Vital Signs:
Vital Signs
Temp Pulse Resp BP Pulse Ox
36.7 C 82 16 93/53 95
04/20/23 07:00 04/20/23 08:01 04/20/23 08:01 04/20/23 07:00 04/20/23 08:01
I&O
04/19/23 04/20/23 04/21/23
06:59 06:59 06:59
Intake Total 420 / 420 840 / 840
Balance 420 / 420 840 / 840
Review of Systems
-
History Source: Patient
All other systems: Not reviewed unless documented
EENT: Reports No Symptoms Reported
Cardiac: Reports No Symptoms
Physical Exam
-
General: Appears Chronically Ill and Cachectic
HEENT: Normocephalic
Respiratory: Non Labored Respirations; Negative Accessory Resp Muscle Use
Cardiac: Regular Rhythm
GI: Soft, Nontender and Nondistended
Psych: Calm
Data Reviewed
-
Total Time Spent with Patient (in minutes): 35
Diagnostic Radiology: Report Reviewed by me
Labs: Labs Reviewed by me (Potassium 3.1/TSH is suppressed)
[2023-04-20 11:05] VITALS: BP 128/52; PULSE 91; O2SAT 94
--- NOTE | 2023-04-20 11:16 | PN.CDI ---
CDI
- -
CDI:
Physician Documentation Request
Admit Date: 04/18/23 11:45
Dear Doctor Pamela
Patient sent to ED for change in mental status.
H&P states 'acute metabolic encephalopathy...'
Hospitalist progress notes state 'TME- possibly from hypoxia'
Discharge summary states 'Confusion likely due to hypoxia and '
In an attempt to clarify potential conflicting documentation, please clarify the most likely etiology of the confusion/altered mental status.
Acute metabolic Encephalopathy -
Toxic metabolic encephalopathy
Acute or subacute confusional state due to hypoxia and community-acquired pneumonia
Other
Use of terms such as suspected, likely, concern for, or probable (associated with a specific diagnosis that is being evaluated, monitored, or treated as if it exists) are acceptable and can be coded in the inpatient setting, when documented at the
time of discharge.
Thank you,
Kathy Alexander RN, BSN
CDI Specialist
tiger text
Please use your independent medical judgment in providing your response.
[2023-04-20 15:09] LABS: Alpha-1-Antitrypsin 204 mg/dL (90-200); Ceruloplasmin 41 mg/dL (16-45)
[2023-04-20 21:59] LABS: LKM-1 Ab (IgG) 2.1 U (0.0-24.9); Soluble Liver Antigen Ab 3.1 U (0.0-24.9)
[2023-04-21] LABS: Endomysial IgA Antibody Titer <1:10 (<1:10)
[2023-04-21 02:06] LABS: Mitochondrial M2 Ab, IgG 8.4 Units (0.0-24.9)
[2023-04-21 02:24] LABS: ANA, IgG Reflex to HEp-2 Detected (None Detected)
[2023-04-21 14:59] LABS: tTG IgA Antibody 16.3 EU/ml (0-19); tTG IgG Antibody 73.1 EU/ml (0-19)
[2023-04-22 00:59] LABS: ANA, HEp-2, IgG <1:80 (<1:80)
== END 2023-04-20 15:39 | DRG 193 ==
LOC: 3 WEST ACU 11:45
PROVIDERS: Hospitalist; Nurse Practitioner Family; Registered Nurse; ADMITTING PHYSICIAN General Practice; ATTENDING PHYSICIAN Internal Medicine; CONSULT PHYSICIAN Internal Medicine; EMERGENCY PHYSICIAN Emergency Medicine; FAMILY PHYSICIAN Internal Medicine
DX: J18.9 Pneumonia, unspecified organism (principal); E43 Unspecified severe protein-calorie malnutrition; G93.41 Metabolic encephalopathy; J96.11 Chronic respiratory failure with hypoxia; Z68.1 Body mass index [BMI] 19.9 or less, adult; D63.8 Anemia in other chronic diseases classified elsewhere; F32.A Depression, unspecified; F41.9 Anxiety disorder, unspecified; E03.9 Hypothyroidism, unspecified; E11.9 Type 2 diabetes mellitus without complications; E78.00 Pure hypercholesterolemia, unspecified; K21.9 Gastro-esophageal reflux disease without esophagitis; Z66 Do not resuscitate; Z87.891 Personal history of nicotine dependence
CPT/HCPCS: 70450; 71045; 74177; 76700; 80053; 80076; 81003; 81015; 82103; 82140; 82390; 82728; 82784; 83516; 83540; 83550; 85025; 85027; 86038; 86039; 86231; 86376; 86381; 86704; 86706; 86708; 86709; 86803; 87070; 87077; 87086; 87340; 93005; 94640; 96365; 96375; 97163; 97530; 99285; Q9967

== ENCOUNTER → 2023-04-23 13:01 | Outpatient (REF) | payer OTHER, MEDICARE, SELFPAY ==
[2023-04-23 13:56] LABS: Hematocrit 31.7 % (37.0-47.0); Hemoglobin 10.2 g/dL (12.0-16.0); Mean Corp Hgb Conc. 32.2 g/dL (33.0-37.0); Mean Corpuscular Volume 93.2 fL (81.0-99.0); Mean Platelet Volume 10.5 fL (7.4-10.4); Platelet Count 379 10^3/uL (130-400); Red Cell Dist. Width 14.2 % (11.5-14.5); White Blood Cell Count 7.9 10^3/uL (4.8-10.8)
[2023-04-23 14:08] LABS: ALT (SGPT) 67 U/L (0-35); AST (SGOT) 53 U/L (14-36); Albumin 3.1 g/dl (3.5-5.0); Alkaline Phosphatase 130 U/L (38-126); Blood Urea Nitrogen 17 mg/dl (7-17); Calcium 9.3 mg/dl (8.4-10.2); Carbon Dioxide 31 mmol/L (22-30); Chloride 102 mmol/L (98-107); Direct Bilirubin 0.1 mg/dl (0.0-0.4); Glucose 99 mg/dl (70-99); Magnesium 2.1 mg/dl (1.6-2.3); Potassium 4.3 mmol/L (3.5-5.1); Sodium 133 mmol/L (135-145); Total Bilirubin 0.3 mg/dl (0.2-1.3); Total Protein 6.2 g/dl (6.3-8.2); eGFR > 60.00
[2023-04-23 14:23] LABS: Free T4 1.24 ng/dl (0.78-2.19)
[2023-04-24 09:39] LABS: Glycohemoglobin (HgbA1c) 5.8 % (4.0-5.6)
== END ==
LOC: OLABWHC 13:01
PROVIDERS: ATTENDING PHYSICIAN Internal Medicine
DX: G93.41 Metabolic encephalopathy (principal); I10 Essential (primary) hypertension; E11.9 Type 2 diabetes mellitus without complications; E43 Unspecified severe protein-calorie malnutrition; E03.9 Hypothyroidism, unspecified; R74.01 Elevation of levels of liver transaminase levels
CPT/HCPCS: 36415; 80053; 82248; 83036; 83735; 84439; 84443; 85027

== ENCOUNTER 2023-10-27 22:09 | Inpatient (IN) | payer MEDICARE, SELFPAY ==
[2023-10-27] VITALS (11 sets, daily range): BP systolic 98–136; BP diastolic 62–110
--- NOTE | 2023-10-27 19:30 | ED.GENMED ---
History of Present Illness
General
Chief Complaint: Change Level of Consciousness
Source: longterm (isa)
Exam Limitations: altered mental status
Time Seen by Provider: 10/27/23 19:17
History of Present Illness
History of Present Illness:
This is a 73 year old female that comes in by ambulance from [facility]. Spoke with Isa and she said that at 6:30pm her pulse ox was low at 60% and her finger nails were blue. States that they increased her 02 to 4 liters.
States that she was more confused and kline a productive cough. States that her BP was low at 90/50. Denies any fever, chills, chest pain, abd pain, nausea, vomiting, diarrhea, headache, dizziness, urinary burning.
Past History
Past History
ED Past Medical History: COPD, GERD, Hypercholesterolemia, NIDDM, Hypothyroidism, Psychiatric (Anxiety, Panic disorder, Depression, ) and Other ( oxygen dependent, osteoporosis, Torturous aorta arch, Insomnia)
ED Past Surgical History: Orthopedic (Leg fracture, Right hip, ) and Other (cataracts )
Social History
Alcohol: None
Personal:
Living: other (Independent living [facility])
Review of Systems
Review of Systems
Other source history: longterm
All Other Systems: ROS reviewed and negative except as documented in HPI and ROS
Constitutional: Reports no symptoms; Denies fever or chills
EENT: Reports no symptoms
Respiratory: Reports cough and trouble breathing
Cardiac: Denies chest pain
ABD/GI: Reports no symptoms; Denies abdominal pain, nausea, vomiting or diarrhea
: Reports no symptoms
Musculoskeletal: Reports no symptoms
Skin: Reports no symptoms
Neurological: Reports no symptoms; Denies dizzy or headache
Psychiatric: Reports no symptoms
Phy Exam
General Physical Exam
General Presentation: no apparent distress
General age: appears stated age
General Skin: warm and dry
General Habitus: elderly
General Mental: other (Lethargic but awakes and will follow commands)
General Hydration: dry mucous membranes
ENT Exam
ENT Exam: TM's normal, pharynx normal and neck supple
Eye Exam
Eye Exam: EOMI
Cardiovascular Exam
Cardiovascular Exam: regular rate/rhythm, no edema and normal peripheral pulses
Pulmonary Exam
Pulmonary Exam: no respiratory distress, chest non tender, no rhonchi, no wheezing, no cough and decreased breath sounds (Right sided with rales left base)
Gastrointestinal Exam
Gastrointestinal Exam: normal bowel sounds, non tender, soft, no organomegaly, no pulsatile mass and non distended
Musculoskeletal Exam
Musculoskeletal Exam: full ROM and no edema
Skin Exam
Skin Exam: normal color, warm/dry, no rash and no petechia
Psychiatric Exam
Psychiatric Exam: other (Lethargic but awakes to her name and will follow commands)
Course
Orders/Labs/Results
Orders:
Orders
10/27/23 19:28
0.9% Sodium Chloride 1000 ml [Nss] 1,000 ml IV BOLUS
10/27/23 19:29
CT Head W/o Iv Contrast Urgent
Comment:
Reason For Exam: Change in mental status
10/27/23 19:30
Straight cath- Treatment ONCE
10/27/23 19:38
COVID-19 Antigen Urgent
Source: Nasal Swab
Complete Blood Count/With Diff Urgent
Comprehensive Metabolic Panel Urgent
Lactate Level [Lactic Acid] Urgent
TSH Reflex To Free T4 Urgent
Troponin I Urgent
Urinalysis Reflex To Culture Urgent
Date Specimen was Collected: 10/27/23
Time Specimen was Collected: 19:36
10/27/23 19:44
CR Chest - 2 Views Urgent
Comment:
Reason For Exam: SOB
10/27/23 19:45
Electrocardiogram (*1) Urgent
Reason for Study: Shortness of Breath
EKG- Treatment ONCE
10/27/23 20:36
Potassium Chloride [KCl] 40 meq 0.9% Sodium Chloride 250 ml [Nss] 250 ml IV NOW
10/27/23 21:06
Add On- LAB Urgent
Tests Added?: Magnesium
10/27/23 21:09
Add On- LAB Urgent
Tests Added?: Serum osm
Add On- LAB Urgent
Tests Added?: Urine potassium, Urine osm
Abnormal Lab Results
10/27/23
19:38
WBC 11.4 H 10^3/uL
(4.8-10.8)
RBC 3.85 L 10^6/uL
(4.20-5.40)
Hgb 11.9 L g/dL
(12.0-16.0)
Hct 34.9 L %
(37.0-47.0)
Absolute Neuts (auto) 10.1 H 10^3/uL
(1.4-6.5)
Absolute Lymphs (auto) 0.6 L 10^3/uL
(1.2-3.4)
Neutrophils % 88.4 H %
(42.2-75.2)
Lymphocytes % 5.0 L %
(20.5-51.1)
Potassium 2.4 L* mmol/L
(3.5-5.1)
BUN 20 H mg/dl
(7-17)
Creatinine 0.5 L mg/dL
(0.6-1.0)
Glucose 174 H mg/dl
(70-99)
10/27/23 19:38
10/27/23 19:38
WBC slightly elevated. H/H slightly low. Dehydration. Hyperglycemia, Hypokalemia, TSH 0.63, Lactic acid normal at 1.0, Urine negative for infection. COVID negative. Tropnoin <0.012
Vital Signs
Initial and Last Documented VS:
Initial Vital Signs
Temp Pulse Resp BP Pulse Ox
98.9 F 96 16 119/63 82
10/27/23 19:15 10/27/23 19:15 10/27/23 19:15 10/27/23 19:15 10/27/23 19:15
Last Documented Vital Signs
Temp Pulse Resp BP Pulse Ox
98.9 F 91 19 136/110 95
10/27/23 19:15 10/27/23 21:00 10/27/23 21:00 10/27/23 21:00 10/27/23 21:00
MDM/Problems Addressed
Differential Diagnosis Includes:
Change in mental status, UTI
MDM/Problems Addressed:
This is a 73 year old female that is brought in by ambulance with c/o change in mental status. Called and spoke with Isa. States that at 6:30pm when they went in her room Her pulse ox was only 60% to they increased her oxygen to 4 liters. States
that she was more confused then normal and she had a productive cough. States that her fingers were blue and her HR was 102. States that her BP was 90/50.
will check labs, get urine CT head and give IV fluids.
will admit patient as abnormal labs. Patient may need a higher level or care. Hospitalist notified
Chronic conditions affecting care: Psychiatric illness
Acute Exacerbation and/or Progression of Chronic Illness: Psychiatric illness
*Radiology
Radiology exam reviewed: radiology read reviewed (Chest-NO convincing acute cardiopulmonary process. Head CT-No acute intracranial abnormality noted. )
*Pulse Oximetry
Patient hypoxic: no
*EKG
Interpreted by ED Provider?: Yes
Heart Rate: 90
Rate: normal
Rhythm: sinus
Nixa: normal axis
Interval: normal interval
QRS Pattern: normal QRS
Ischemia: non-specific ST changes
*Field Evidence Technician Interpretation
Rate: normal
Heart Rate: 94
Rhythm: sinus
*Critical Care Note
Total Time (30-74mins, 75-104mins- exclusive of procedures): Not Applicable
ED Attending Note
-
Portions of this chart may have been created with voice recognition software.� Occasional wrong word or��sound alike� substitutions may have occurred due to the inherent limitations of voice recognition software.
Discharge Plan
Departure
Patient Disposition: Admit
Date of Disposition: 10/27/23
Time of Disposition: 20:36
Admit to: Telemetry
Presentation/result/management discussed w/ accepting MD/DO: Hospitalist
Condition: Good
Covid-19: Negative COVID-19
Discharge Problem:
Altered mental status, Acute hypokalemia
Prescriptions:
No Action
alendronate [Fosamax] 70 mg Tablet
70 mg PO SA
sertraline 100 mg Tablet
100 mg PO DAILY
guaifenesin 100 mg/5 mL Liquid
200 mg PO Q6HPRN PRN (Reason: cough)
levothyroxine [Synthroid] 50 mcg Tablet
50 mcg PO DAILY
pantoprazole [Protonix] 40 mg Tablet,Delayed Release (Dr/Ec)
40 mg PO DAILY
folic acid 1 mg Tablet
1 mg PO DAILY
Trelegy Ellipta 100-62.5-25 mcg Blister With Device
1 inh INHALATION R DAILY
cyclobenzaprine 10 mg Tablet
10 mg PO BID
acetaminophen [Tylenol] 325 mg Tablet
650 mg PO Q6HPRN MDD 3000 mg PRN (Reason: mild pain/temp>100F)
trazodone 50 mg Tablet
75 mg PO HS
mirtazapine [Remeron] 15 mg Tablet
15 mg PO HS
albuterol sulfate 90 mcg/actuation Hfa Aerosol Inhaler
2 puff INHALATION R Q4HPRN PRN (Reason: sob)
loperamide 2 mg Tablet
2 mg PO [id number] PRN (Reason: diarrhea)
potassium chloride 20 mEq/15 mL Liquid
20 meq PO DAILY
cyanocobalamin (vitamin B-12) 500 mcg Tablet
1,000 mcg PO DAILY
ibuprofen 600 mg Tablet
600 mg PO [id number] PRN (Reason: headache)
Boost Breeze Liquid
1 ea PO BID
Patient Comments:
10/27/23: 240mL BID
midodrine 5 mg tablet
5 mg PO TID
Rx Instructions:
Hold for SBP>120
alprazolam 0.5 mg tablet
0.5 mg PO TID
Referrals:
Carlos Leal MD [Family Provider] -
Interventions
Interventions:
*Risk Screen - Suicide Last Done: 10/27/23 19:15
*General Assessment Last Done: 10/27/23 19:15
*Neglect/Abuse Screening Last Done: 10/27/23 19:15
ED- Cardiac Assessment Last Done: 10/27/23 19:44
ED- Neurological Assessment Last Done: 10/27/23 19:15
ED-Psychological Assessment Last Done: 10/27/23 19:44
ED- Pulmonary Assessment Last Done: 10/27/23 19:44
Discharge Date and Time
Print Language: SYRIAC
[2023-10-27] MEDS: NSS 1000 IV (19:37)
[2023-10-27 19:47] LABS: % Basophils 0.4 % (0-2); % Eosinophils 0.8 % (0-6); % Immature Granulocytes 0.3 % (0-0.5); % Monocytes 5.1 % (1.7-9.3); % Neutrophils 88.4 % (42.2-75.2); Absolute Basophils 0.1 10^3/uL (0-0.2); Absolute Eosinophils 0.1 10^3/uL (0-0.7); Absolute Lymphocytes 0.6 10^3/uL (1.2-3.4); Absolute Monocytes 0.6 10^3/uL (0.1-0.6); Absolute Neutrophils 10.1 10^3/uL (1.4-6.5); Hematocrit 34.9 % (37.0-47.0); Hemoglobin 11.9 g/dL (12.0-16.0); Mean Corp Hgb Conc. 34.1 g/dL (33.0-37.0); Mean Corpuscular Hgb 30.9 pg (27.0-31.0); Mean Corpuscular Volume 90.6 fL (81.0-99.0); Mean Platelet Volume 10.3 fL (7.4-10.4); Nucleated Red Blood Cells % 0 %; Platelet Count 253 10^3/uL (130-400); Red Blood Cell Count 3.85 10^6/uL (4.20-5.40); Red Cell Dist. Width 13.2 % (11.5-14.5); White Blood Cell Count 11.4 10^3/uL (4.8-10.8)
[2023-10-27 19:52] LABS: Urine Albumin Negative (Neg - Trace); Urine Bilirubin Negative (Negative); Urine Character Slightly Cloudy (Clear); Urine Color Yellow; Urine Glucose Negative (Negative); Urine Ketone Negative (Negative); Urine Leukocyte Negative (Negative); Urine Nitrite Negative (Negative); Urine Occult Blood Negative (Negative); Urine Specific Gravity 1.015 (<1.030); Urine Urobilinogen Negative (Neg - 1+)
[2023-10-27 20:05] LABS: COVID-19 Antigen Negative (Negative)
[2023-10-27 20:08] LABS: ALT (SGPT) 21 U/L (0-35); AST (SGOT) 30 U/L (14-36); Albumin 4.2 g/dl (3.5-5.0); Alkaline Phosphatase 72 U/L (38-126); Blood Urea Nitrogen 20 mg/dl (7-17); Calcium 9.4 mg/dl (8.4-10.2); Carbon Dioxide 29 mmol/L (22-30); Chloride 99 mmol/L (98-107); Glucose 174 mg/dl (70-99); Potassium 2.4 mmol/L (3.5-5.1); Sodium 141 mmol/L (135-145); Total Bilirubin 0.6 mg/dl (0.2-1.3); Total Protein 7.1 g/dl (6.3-8.2); eGFR > 60.00
[2023-10-27 20:15] LABS: Troponin I < 0.012 ng/ml
[2023-10-27 20:34] LABS: TSH Reflex To Free T4 0.63 uIU/ml (0.47-4.68)
[2023-10-27] MEDS: KCL 270 MEQ IV (21:26)
[2023-10-27 21:37] LABS: Osmolality Urine 461 mOsm/kg (300-900)
--- NOTE | 2023-10-27 21:37 | HPS.HSE ---
Addendum entered and electronically signed by Jourdan Manjarrez DO 10/27/23 22:22:
Patient seen and examined independently. Agree with findings and plan as set forth by Essence Hernandez PA-C.
Patient is a 73y F with PMH significant for COPD, chronic O2-dependent, hypothyroidism and anxiety who presents to ED from local personal care apartment after staff there noted hypoxemia and 'blue fingers'. Patient is reportedly on chronic
oxygen therapy - but it is not clear whether she was wearing this at all this afternoon. O2 was administered and patient sent to the ED for evaluation. In the ED, her O2 sats are acceptable on 2lpm of supplemental O2. Patient is 'tired' but
denies any other complaints. She does seem somewhat confused but has no listed history of dementia, etc.
Evaluation in the ED reveals significant hypokalemia and patient is to be admitted for further evaluation.
Ass:
Acute on Chronic Hypoxemia
COPD without Acute Exacerbation
Hypokalemia
Chronic Hypotension
Hypothyroidism
Anxiety / Depression
Severe Protein Calorie Malnutrition
GERD
Plan:
Admit for further evaluation and treatment.
Continue current / usual oxygen supplementation.
Afebrile, non-toxic, etc.
Replace potassium IV and PO routes.
Magnesium is adequate.
No evident culprit medications that should cause significant hypokalemia.
Patient is reportedly on chronic potassium supplementation - ? compliance.
Additional studies suggest degree of renal potassium wasting (TTKG = 5).
Follow for improvement in labs / lytes with replacement.
Consider nephrology evaluation if potassium difficult to correct.
PT / OT / CM evaluations.
Original Note:
Family Physician
-
Family Physician: Carlos Leal
Chief Complaint
-
Change in mental status
History of Present Illness
Patient is a 73 y/o female past medical history of chronic hypoxia secondary to severe emphysema, anxiety, and malnutrition who presents with change in mental status. Patient is a limited historian. Patient was noted was found to be hypoxic at her
facility with pulse in the 60s. Her nails with cyanotic and she was confused. She was placed on 4L via nasal cannula. Upon my evaluation patient's pulse ox is 92% on 3L. She denies any specific complaints at the present time.
Medical History
Past Medical History
Past Medical History: Reports Other
Additional Past Medical History:
Chronic Hypoxic Respiratory Failure
Severe Emphysema
Chronic Hypotension
Hypothyroidism
Hyperlipidemia
Generalized Anxiety Disorder
GERD
Osteoporosis
Past Surgical History: Reports Other
Additional Past Surgical History:
Cataract Surgery
Right Hip Replacement
Left Hip ORIF
Social History
Tobacco: Former Smoker
Alcohol: None
Drug: None
Living: Assisted Living
Family History
Family History: Not pertinent
Allergies / Home Medications
Allergies reflects when Allergies were last updated in [facility].
Home Medications with original date entered in [facility]
Allergy/Medication List:
Allergies
Allergy/AdvReac Type Severity Reaction Status Date / Time
banana Allergy 'shakes Verified 10/27/23 19:14
real bad'
tetracycline Allergy 'pass out Verified 10/27/23 19:14
and shake'
Home Medications
alendronate 70 mg tablet (Fosamax) 70 mg PO SA OSTEOPOROSIS 06/17/22
fluticasone fur. 100 mcg-umeclid 62.5 mcg-vilant 25 mcg inhalat.powder (Trelegy Ellipta) 1 inh inhalation R DAILY Lung/breathing issues 06/17/22
folic acid 1 mg tablet 1 mg PO DAILY Supplement 06/17/22
guaifenesin 100 mg/5 mL oral liquid 200 mg PO Q6HPRN PRN cough 06/17/22
levothyroxine 50 mcg tablet (Synthroid) 50 mcg PO DAILY Thyroid 06/17/22
pantoprazole 40 mg tablet,delayed release (Protonix) 40 mg PO DAILY Gastrointestinal issue 06/17/22
sertraline 100 mg tablet 100 mg PO DAILY Depression 06/17/22
acetaminophen 325 mg tablet (Tylenol) 650 mg PO Q6HPRN PRN mild pain/temp>100F 12/04/22
albuterol sulfate 90 mcg/actuation aerosol inhaler 2 puff inhalation R Q4HPRN PRN sob 12/04/22
cyclobenzaprine 10 mg tablet 10 mg PO BID Muscle Spasms 12/04/22
mirtazapine 15 mg tablet (Remeron) 15 mg PO HS mental health/sleep 12/04/22
trazodone 50 mg tablet 75 mg PO HS mental health/sleep 12/04/22
alprazolam 0.5 mg tablet 0.5 mg PO TID anxiety 10/27/23
cyanocobalamin (vitamin B-12) 500 mcg tablet 1,000 mcg PO DAILY 10/27/23
food supplemt, lactose-reduced 1 ea PO BID 10/27/23
ibuprofen 600 mg tablet 600 mg PO [id number] PRN headache 10/27/23
loperamide 2 mg tablet 2 mg PO [id number] PRN diarrhea 10/27/23
midodrine 5 mg tablet 5 mg PO TID 10/27/23
potassium chloride 20 mEq/15 mL oral liquid 20 meq PO DAILY 10/27/23
Review of Systems
-
A 12 point ROS was completed and negative except as noted: Yes
Constitutional: Denies Fever or Chills
Respiratory: Denies Cough or Trouble Breathing
Cardiac: Denies Chest Pain or Palpitations
Physical Exam
Vital Signs
Vital Signs
Temp Pulse Resp BP Pulse Ox
98.9 F 90 17 136/110 96
10/27/23 19:15 10/27/23 21:15 10/27/23 21:15 10/27/23 21:00 10/27/23 21:15
Physical Exam
General: Appears Chronically Ill and Cachectic
HEENT: Anicteric and Moist mucous membranes
Respiratory: Rhonchi (Few scattered) and Non Labored Respirations
Cardiac: S1/S2 and Regular Rhythm
GI: Soft and Non Tender
Musculoskeletal: No Clubbing and No Cyanosis
Skin: Warm and Dry
Neuro: Awake, Alert, Oriented (Self) and Nonfocal/grossly intact
Psych: Calm
Laboratory Results
-
10/27/23 19:38
10/27/23 19:38
Laboratory Results
Lactic Acid 1.0 mmol/L (0.7-2.0) 10/27/23 19:38
Total Bilirubin 0.6 mg/dl (0.2-1.3) 10/27/23 19:38
AST 30 U/L (14-36) 10/27/23 19:38
ALT 21 U/L (0-35) 10/27/23 19:38
Alkaline Phosphatase 72 U/L (38-126) 10/27/23 19:38
Troponin I < 0.012 ng/ml 10/27/23 19:38
Chest X-Ray:
No convincing acute cardiopulmonary process.
Head CT:
No acute intracranial abnormality noted.
Data Reviewed
-
Lab Data: Labs Reviewed by me
Impression/Plan
-
Acute/Severe Hypokalemia
-Patient does not appears to be taking any potassium wasting medications
-Replace potassium oral and IV
-Check magnesium
-Check urine potassium
TME possibly due to transient hypoxia vs hypokalemia
-Monitor mental status
Chronic Hypoxic Respiratory Failure secondary to Severe Emphysema
-Continue supplemental oxygen with goal pulse ox 90-92%, baseline 2L per prior records
-Continue Trelegy
Chronic Hypotension
-Continue midodrine
Hypothyroidism
-Continue levothyroxine
Anxiety/Depression/Insomnia
-Hold Trazodone due to change in mental status
-Continue Zoloft
-Increase Remeron to 30mg HS
-Decrease Xanax 0.25mg BID
Severe Protein Calorie Malnutrition
-Consult Dietary
-Add supplement twice a day
GERD
-Change Protonix to Pepcid
DVT proph: Lovenox
[2023-10-27 21:40] LABS: Urine Potassium 19.7 mmol/L (30-90)
[2023-10-27 21:51] LABS: Osmolality Serum 291 mOsm/kg (275-300)
[2023-10-27] MEDS: KCL ELIXIR 40 MEQ PO (21:57)
[2023-10-28] VITALS (8 sets, daily range): BP systolic 99–115; BP diastolic 47–74; PULSE 88; O2SAT 98; BMI 14.7
[2023-10-28] MEDS: ProAmatine PO (00:08)
[2023-10-28] MEDS: XANAX PO ×2 (00:09→19:53)
[2023-10-28] MEDS: REMERON PO ×2 (00:09→19:53)
[2023-10-28] MEDS: VENTOLIN NEBULES 2.5 MG INH (01:54)
[2023-10-28 01:56] LABS: Potassium 4.2 mmol/L (3.5-5.1)
[2023-10-28] MEDS: XANAX 0.25 MG PO ×3 (03:23→20:45)
[2023-10-28] MEDS: SYNTHROID 50 MCG PO (05:10)
[2023-10-28] MEDS: ProAmatine 5 MG PO ×3 (07:57→17:12)
[2023-10-28] MEDS: ZOLOFT 100 MG PO (07:57)
[2023-10-28] MEDS: PEPCID 20 MG PO ×2 (07:57→19:53)
[2023-10-28] MEDS: KCL ELIXIR 20 MEQ PO (07:58)
[2023-10-28 08:05] LABS: Hematocrit 32.4 % (37.0-47.0); Hemoglobin 10.7 g/dL (12.0-16.0); Mean Corpuscular Hgb 30.6 pg (27.0-31.0); Mean Corpuscular Volume 92.6 fL (81.0-99.0); Mean Platelet Volume 10.7 fL (7.4-10.4); Platelet Count 231 10^3/uL (130-400); Red Cell Dist. Width 13.4 % (11.5-14.5); White Blood Cell Count 6.1 10^3/uL (4.8-10.8)
[2023-10-28] MEDS: SPIRIVA RESPIMAT 2.5 MCG 2 PUFF INH (08:24)
[2023-10-28] MEDS: SYMBICORT 80/4.5 MCG INHALER 2 PUFF INH ×2 (08:24→21:31)
[2023-10-28 08:43] LABS: Blood Urea Nitrogen 15 mg/dl (7-17); Calcium 8.5 mg/dl (8.4-10.2); Carbon Dioxide 26 mmol/L (22-30); Chloride 109 mmol/L (98-107); Glucose 106 mg/dl (70-99); Sodium 144 mmol/L (135-145); eGFR > 60.00
[2023-10-28] MEDS: KCL 270 MEQ IV (09:28)
[2023-10-28] MEDS: KCL 20 MEQ PO (09:29)
[2023-10-28] MEDS: ZOFRAN 4 MG IV (10:31)
--- NOTE | 2023-10-28 11:34 | W.PN.HOSP.TC ---
Today's Communication/Plan
-
replete lytes
dietary eval
monitor mentation
monitor po intake
Assessment / Plan
Assessment / Plan
Acute/Severe Hypokalemia
-Patient does not appears to be taking any potassium wasting medications
-Replace potassium oral and IV
TME possibly due to transient hypoxia vs hypokalemia vs. underlying cognitive disorder worsening vs. medication related
-Monitor mental status
-CT head The ventricles are normal in size, configuration, and position for age. There is no intra- or extra-axial mass, hemorrhage, or fluid collection. No areas of abnormal mass effect or attenuation are noted. There is mild subcortical, deep,
and periventricular white matter low-attenuation, compatible with changes of chronic small vessel ischemic disease. Visualized paranasal sinuses are free of mucosal disease. No depressed calvarial fracture.
Chronic Hypoxic Respiratory Failure secondary to Severe Emphysema
-Continue supplemental oxygen with goal pulse ox 90-92%, baseline 2L per prior records
-Continue Trelegy
Chronic Hypotension
-Continue midodrine
Hypothyroidism
-Continue levothyroxine
Anxiety/Depression/Insomnia
-Hold Trazodone due to change in mental status
-Continue Zoloft
-Increase Remeron to 30mg HS
-Decrease Xanax 0.25mg BID
Severe Protein Calorie Malnutrition
-Consult Dietary-document po intake .?need calorie count
-Add supplement twice a day
GERD
-Change Protonix to Pepcid
DVT proph: Lovenox
Anticipated Discharge: > 48 hours
Subjective/Interval History
-
Date of Service: October 28, 2023
states of some nausea with potassium
Objective Data
-
Labs:
Laboratory Results
10/28/23 10/28/23
01:41 06:45
WBC 6.1
Hgb 10.7 L
Hct 32.4 L
Plt Count 231
Sodium 144
Potassium 4.2 D 3.0 L D
Chloride 109 H
Carbon Dioxide 26
BUN 15
Creatinine 0.5 L
Glucose 106 H
Calcium 8.5
Vital Signs:
Vital Signs
Temp Pulse Resp BP Pulse Ox
97.7 F 91 20 106/47 97
10/28/23 11:29 10/28/23 11:29 10/28/23 11:29 10/28/23 11:29 10/28/23 11:29
I&O
10/27/23 10/28/23 10/29/23
06:59 06:59 06:59
Intake Total 240 / 240
Balance 240 / 240
Physical Exam
-
General: No Apparent Distress, Appears Chronically Ill and Cachectic
HEENT: Normocephalic, Atraumatic, Moist Mucous Membranes and Oxygen
Respiratory: Non Labored Respirations; Negative Accessory Resp Muscle Use
Cardiac: Regular Rhythm and S1/S2
GI: Soft, Nontender, Nondistended and Normal Bowel Sounds
Musculoskeletal: No Edema
Skin: Warm
Neuro: Awake and No Motor Deficits
Psych: Confused
Data Reviewed
-
Total Time Spent with Patient (in minutes): 56
[2023-10-28] MEDS: LOVENOX 30 MG SC (17:12)
[2023-10-28] MEDS: REMERON 30 MG PO (20:45)
[2023-10-29] VITALS (9 sets, daily range): BP systolic 89–129; BP diastolic 56–77; PULSE 97; O2SAT 98
[2023-10-29] MEDS: SYNTHROID 50 MCG PO (06:14)
[2023-10-29 07:53] LABS: Blood Urea Nitrogen 13 mg/dl (7-17); Calcium 9.2 mg/dl (8.4-10.2); Carbon Dioxide 30 mmol/L (22-30); Chloride 106 mmol/L (98-107); Glucose 101 mg/dl (70-99); Magnesium 2.2 mg/dl (1.6-2.3); Phosphorus 2.2 mg/dl (2.5-4.5); Potassium 3.6 mmol/L (3.5-5.1); Sodium 145 mmol/L (135-145); eGFR > 60.00
[2023-10-29] MEDS: SPIRIVA RESPIMAT 2.5 MCG 2 PUFF INH (08:13)
[2023-10-29] MEDS: SYMBICORT 80/4.5 MCG INHALER 2 PUFF INH ×2 (08:13→19:05)
[2023-10-29] MEDS: KCL ELIXIR PO ×2 (09:01→09:45)
[2023-10-29] MEDS: ZOLOFT 100 MG PO (09:02)
[2023-10-29] MEDS: PEPCID 20 MG PO ×2 (09:02→20:32)
[2023-10-29] MEDS: NEUTRA-PHOS POWDER PACKET PO (09:02)
[2023-10-29] MEDS: XANAX 0.25 MG PO ×2 (09:02→20:33)
[2023-10-29] MEDS: ProAmatine 5 MG PO ×3 (09:02→17:47)
--- NOTE | 2023-10-29 12:00 | W.PN.HOSP.TC ---
Today's Communication/Plan
-
marinol ordered
calorie count
dietary following
replete phos
SNF on dc
Assessment / Plan
Assessment / Plan
Acute/Severe Hypokalemia
-Patient does not appears to be taking any potassium wasting medications
-Replace potassium oral and IV prn.
TME possibly due to transient hypoxia vs hypokalemia vs. underlying cognitive disorder worsening vs. medication related
-Monitor mental status
-CT head The ventricles are normal in size, configuration, and position for age. There is no intra- or extra-axial mass, hemorrhage, or fluid collection. No areas of abnormal mass effect or attenuation are noted. There is mild subcortical, deep,
and periventricular white matter low-attenuation, compatible with changes of chronic small vessel ischemic disease. Visualized paranasal sinuses are free of mucosal disease. No depressed calvarial fracture.
-seems probably at baseline at this point
Chronic Hypoxic Respiratory Failure secondary to Severe Emphysema
-Continue supplemental oxygen with goal pulse ox 90-92%, baseline 2L per prior records
-Continue Trelegy
Chronic Hypotension
-Continue midodrine
Hypothyroidism
-Continue levothyroxine
Anxiety/Depression/Insomnia
-Hold Trazodone due to change in mental status
-Continue Zoloft
-Increase Remeron to 30mg HS
-Decrease Xanax 0.25mg BID
Severe Protein Calorie Malnutrition of chronic illness
-Consult Dietary-document po intake started calorie count
-Remeron increased and Marinol added too
-dietary following
Hypophosphatemia
-neutraphos started
GERD
-Change Protonix to Pepcid
DVT proph: Lovenox
Anticipated Discharge: > 48 hours
Subjective/Interval History
-
Date of Service: October 29, 2023
remains with poor appetite
Objective Data
-
Labs:
Laboratory Results
10/29/23
06:47
Sodium 145
Potassium 3.6
Chloride 106
Carbon Dioxide 30
BUN 13
Creatinine 0.5 L
Glucose 101 H
Calcium 9.2
Vital Signs:
Vital Signs
Temp Pulse Resp BP Pulse Ox
97.9 F 115 22 107/71 93
10/29/23 11:05 10/29/23 11:05 10/29/23 11:05 10/29/23 11:05 10/29/23 11:05
I&O
10/28/23 10/29/23 10/30/23
06:59 06:59 06:59
Intake Total 240 / 240 600 / 600
Balance 240 / 240 600 / 600
Physical Exam
-
General: No Apparent Distress, Appears Chronically Ill and Cachectic
HEENT: Normocephalic, Atraumatic, Moist Mucous Membranes and Oxygen
Respiratory: Non Labored Respirations; Negative Accessory Resp Muscle Use
Cardiac: Regular Rhythm and S1/S2
GI: Soft, Nontender, Nondistended and Normal Bowel Sounds
Musculoskeletal: No Edema
Skin: Warm
Neuro: Awake and No Motor Deficits
Psych: Confused
Data Reviewed
-
Total Time Spent with Patient (in minutes): 58
[2023-10-29] MEDS: NEUTRA-PHOS POWDER PACKET 250 MG PO ×3 (12:24→20:36)
[2023-10-29] MEDS: KCL 20 MEQ PO (12:24)
--- NOTE | 2023-10-29 14:54 | CM ---
Addendum entered by Nidia Chambers 10/29/23 15:58:
human services case manager received a call from patient's brother, Sylvain, and they are agreeable to skilled placement at [place], referral sent through [facility].
Brother Sylvain and Judie sister in law
[phone]
Original Note:
human services case manager reviewed patient's chart and reached out to [facility] and left message to confirm patient's prior level of functioning. Per patient's grandson, patient lives at [facility] on personal care and has assistance a
couple of times per week, is independent with adl's and ambulation, she has a walker that she occasionally uses, and oxygen at 2-3 liters.
Pharmacy: [facility]
PCP: Dr. Carlos Leal
Plan: Physical therapy are recommending skilled placement, will review for skilled placement at [facility].
[2023-10-29] MEDS: LOVENOX 30 MG SC (17:47)
[2023-10-29] MEDS: REMERON 30 MG PO (20:33)
[2023-10-30] MEDS: XANAX 0.25 MG PO ×3 (00:25→20:32)
[2023-10-30] MEDS: MELATONIN 3 MG PO (00:25)
[2023-10-30 03:54] VITALS: BP 113/71
[2023-10-30] MEDS: SYNTHROID 50 MCG PO (06:30)
[2023-10-30 07:20] LABS: Blood Urea Nitrogen 17 mg/dl (7-17); Calcium 9.4 mg/dl (8.4-10.2); Carbon Dioxide 29 mmol/L (22-30); Chloride 107 mmol/L (98-107); Glucose 121 mg/dl (70-99); Magnesium 2.3 mg/dl (1.6-2.3); Phosphorus 2.1 mg/dl (2.5-4.5); Potassium 3.9 mmol/L (3.5-5.1); Sodium 148 mmol/L (135-145); eGFR > 60.00
[2023-10-30 07:25] VITALS: BP 125/81
[2023-10-30] MEDS: ProAmatine 5 MG PO ×3 (08:01→17:43)
[2023-10-30] MEDS: KCL 20 MEQ PO (08:01)
[2023-10-30] MEDS: ZOLOFT 100 MG PO (08:01)
[2023-10-30] MEDS: PEPCID 20 MG PO (08:02)
[2023-10-30] MEDS: MARINOL 2.5 MG PO (08:02)
[2023-10-30] MEDS: NEUTRA-PHOS POWDER PACKET 250 MG PO ×4 (08:02→22:01)
[2023-10-30] MEDS: SPIRIVA RESPIMAT 2.5 MCG 2 PUFF INH (08:14)
[2023-10-30] MEDS: SYMBICORT 80/4.5 MCG INHALER 2 PUFF INH ×2 (08:15→19:33)
--- NOTE | 2023-10-30 11:40 | W.PN.HOSP.TC ---
Today's Communication/Plan
-
start d5w
encourage/assist with feeding
pt/ot
eventual SNF
Assessment / Plan
Assessment / Plan
Acute/Severe Hypokalemia
-Patient does not appears to be taking any potassium wasting medications
-Replace potassium oral and IV prn.
TME possibly due to transient hypoxia vs hypokalemia vs. underlying cognitive disorder worsening vs. medication related
-Monitor mental status
-CT head The ventricles are normal in size, configuration, and position for age. There is no intra- or extra-axial mass, hemorrhage, or fluid collection. No areas of abnormal mass effect or attenuation are noted. There is mild subcortical, deep,
and periventricular white matter low-attenuation, compatible with changes of chronic small vessel ischemic disease. Visualized paranasal sinuses are free of mucosal disease. No depressed calvarial fracture.
-seems probably at baseline at this point
Mild hypernatremia likely 2/2 decrease oral intake
-Start hypotonic saline
Chronic Hypoxic Respiratory Failure secondary to Severe Emphysema
-Continue supplemental oxygen with goal pulse ox 90-92%, baseline 2L per prior records
-Continue Trelegy
Chronic Hypotension
-Continue midodrine
Hypothyroidism
-Continue levothyroxine
Anxiety/Depression/Insomnia
-Hold Trazodone due to change in mental status
-Continue Zoloft
-Increase Remeron to 30mg HS
-Decrease Xanax 0.25mg BID
Severe Protein Calorie Malnutrition of chronic illness
-Consult Dietary-document po intake started calorie count
-Remeron increased and Marinol added too
-dietary following .Protein supplements added too
Hypophosphatemia
-neutraphos started
GERD
-Change Protonix to Pepcid
DVT proph: Lovenox
Discussed with [email or web address] over the phone in details. Explained about poor prognosis and patient with significant decreased p.o. appetite and poor mentation. If no improvement with nutrition status will need to consider hospice and family
understands and would be agreeable.
Anticipated Discharge: > 48 hours
Subjective/Interval History
-
Date of Service: October 30, 2023
Refusing tele
agreed to get IVF
remains confused
Objective Data
-
Labs:
Laboratory Results
10/30/23
06:33
Sodium 148 H
Potassium 3.9
Chloride 107
Carbon Dioxide 29
BUN 17
Creatinine 0.5 L
Glucose 121 H
Calcium 9.4
Vital Signs:
Vital Signs
Temp Pulse Resp BP Pulse Ox
97.7 F 103 18 125/81 98
10/30/23 07:25 10/30/23 07:25 10/30/23 07:25 10/30/23 07:25 10/30/23 07:25
I&O
10/29/23 10/30/23 10/31/23
06:59 06:59 06:59
Intake Total 600 / 600 420 / 420
Balance 600 / 600 420 / 420
Physical Exam
-
General: No Apparent Distress, Appears Chronically Ill and Cachectic
HEENT: Normocephalic, Atraumatic, Moist Mucous Membranes and Oxygen
Respiratory: Non Labored Respirations; Negative Accessory Resp Muscle Use
Cardiac: Regular Rhythm and S1/S2
GI: Soft, Nontender, Nondistended and Normal Bowel Sounds
Musculoskeletal: No Edema
Skin: Warm
Neuro: Awake, Alert, Oriented, AO x 3 and No Motor Deficits
Psych: Confused
Data Reviewed
-
Total Time Spent with Patient (in minutes): 56
[2023-10-30] MEDS: D5W 1000 IV (12:13)
[2023-10-30] MEDS: TYLENOL 650 MG PO (14:11)
[2023-10-30 15:00] VITALS: BP 101/68
[2023-10-30] MEDS: LOVENOX 30 MG SC (17:43)
[2023-10-30] MEDS: REMERON 30 MG PO (22:01)
[2023-10-30 23:00] VITALS: BP 102/61
--- NOTE | 2023-10-31 05:49 | PTCARENOTE ---
~ 0500: Pt sitting in recliner at nurse's station and reports needing her oxygen tank. Pt told that she has her oxygen running, pulse ox checked on right thumb 70-83% on 3L nasal cannula. Pt is tachypneic with pursed lip breathing. Pt rolled back
into room in recliner and assisted back into bed with x2 assist. Pt's oxygen increased to 6L and satting at 90%. RT Amor notified. RT decreased pt's O2 back to 3L after pt was given a few minutes to relax and catch her breath. O2 is now 100% on
3L. Will continue with current plan.
[2023-10-31 06:00] VITALS: BMI 14.0
[2023-10-31] MEDS: SYNTHROID 50 MCG PO (06:05)
[2023-10-31 07:26] LABS: Blood Urea Nitrogen 13 mg/dl (7-17); Calcium 9.7 mg/dl (8.4-10.2); Carbon Dioxide 33 mmol/L (22-30); Chloride 100 mmol/L (98-107); Estimated Creatinine Clearance 46 ml/min; Glucose 148 mg/dl (70-99); Potassium 3.8 mmol/L (3.5-5.1); Sodium 142 mmol/L (135-145); eGFR > 60.00
[2023-10-31] MEDS: SPIRIVA RESPIMAT 2.5 MCG 2 PUFF INH (07:28)
[2023-10-31] MEDS: SYMBICORT 80/4.5 MCG INHALER 2 PUFF INH ×2 (07:29→19:39)
[2023-10-31 07:45] VITALS: BP 134/90
[2023-10-31] MEDS: TYLENOL 650 MG PO (08:27)
[2023-10-31] MEDS: KCL PO ×2 (08:28→08:37)
[2023-10-31] MEDS: ProAmatine PO ×3 (08:28→17:27)
[2023-10-31] MEDS: PEPCID 20 MG PO (08:28)
[2023-10-31] MEDS: MARINOL 2.5 MG PO (08:28)
[2023-10-31] MEDS: XANAX 0.25 MG PO ×2 (08:29→20:52)
[2023-10-31] MEDS: NEUTRA-PHOS POWDER PACKET 250 MG PO ×3 (08:29→20:46)
[2023-10-31] MEDS: ZOLOFT 100 MG PO (08:29)
[2023-10-31] MEDS: VENTOLIN NEBULES 2.5 MG INH (11:05)
--- NOTE | 2023-10-31 11:30 | W.PN.HOSP.TC ---
Addendum entered and electronically signed by Dalton Murphy MD 11/01/23 19:47:
Late addendum. Pt was seen and examined on 10/31/2023
General: No Apparent Distress, Appears Chronically Ill and Cachectic
HEENT: Normocephalic, Atraumatic, Moist Mucous Membranes and nasal cannula was out,
Respiratory: Non Labored Respirations; Negative Accessory Resp Muscle Use
Cardiac: Regular Rhythm and S1/S2
GI: Soft, Nontender, Nondistended and Normal Bowel Sounds
Musculoskeletal: No Edema
Skin: Warm
Neuro: Awake, Alert, but not oriented. and No Motor Deficits
Psych: Confused
Original Note:
Today's Communication/Plan
-
Monitor po intake
wean o2 to baseline
SNF on dc. CM aware
Monitor sodium
Assessment / Plan
Assessment / Plan
Severe Protein Calorie Malnutrition of chronic illness
Hypophosphatemia
-Consult Dietary-document po intake started calorie count
-Remeron increased and Marinol added too.
-May require assistance with feeding
-Started on neutra-phos
-dietary following .Protein supplements added too
Acute/Severe Hypokalemia
-Patient does not appears to be taking any potassium wasting medications
-Replace potassium oral and IV prn.
TME possibly due to transient hypoxia vs hypokalemia vs. underlying cognitive disorder worsening vs. medication related
-Monitor mental status
-CT head The ventricles are normal in size, configuration, and position for age. There is no intra- or extra-axial mass, hemorrhage, or fluid collection. No areas of abnormal mass effect or attenuation are noted. There is mild subcortical, deep,
and periventricular white matter low-attenuation, compatible with changes of chronic small vessel ischemic disease. Visualized paranasal sinuses are free of mucosal disease. No depressed calvarial fracture.
-seems probably at baseline at this point
Mild hypernatremia likely 2/2 decrease oral intake
-Na improved and monitor off IVF.
Chronic Hypoxic Respiratory Failure secondary to Severe Emphysema
-Continue supplemental oxygen with goal pulse ox 90-92%, baseline 2L per prior records
-Continue Trelegy
Chronic Hypotension
-Continue midodrine
Hypothyroidism
-Continue levothyroxine
Anxiety/Depression/Insomnia
-Hold Trazodone due to change in mental status
-Continue Zoloft
-Increase Remeron to 30mg HS
-Decrease Xanax 0.25mg BID
Hypophosphatemia
-neutraphos started
GERD
-Change Protonix to Pepcid
DVT proph: Lovenox
Discussed with [email or web address] over the phone in details on 10/29. Explained about poor prognosis and patient with significant decreased p.o. appetite and poor mentation. If no improvement with nutrition status will need to consider hospice and
family understands and would be agreeable. Was on hospice in the past and graduated it from it years ago. 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
Anticipated Discharge: 24 - 48 hours
Subjective/Interval History
-
Date of Service: October 31, 2023
Was agitated overnight and at RN station
O2 requirement went up to 6L and now decreasing
agree to eat some breakfast
Objective Data
-
Labs:
Laboratory Results
10/31/23
06:39
Sodium 142
Potassium 3.8
Chloride 100
Carbon Dioxide 33 H
BUN 13
Creatinine 0.5 L
Glucose 148 H
Calcium 9.7
Vital Signs:
Vital Signs
Temp Pulse Resp BP Pulse Ox
97.8 F 101 18 134/90 94
10/31/23 07:45 10/31/23 11:10 10/31/23 11:10 10/31/23 08:28 10/31/23 11:10
I&O
0910/31/23 11/01/23
06:59 06:59 06:59
Intake Total 420 / 420 620 / 620
Balance 420 / 420 620 / 620
Data Reviewed
-
Total Time Spent with Patient (in minutes): 56
--- NOTE | 2023-10-31 12:28 | CM ---
Chart reviewed and plan is skilled placement at [place], last PT/OT notes are from 10/28, will need updated PT/OT notes for Auth, also will need to check on available bed at [facility] for patient.
[facility]

Dr. Orville Wilhelm
[2023-10-31 15:52] VITALS: BP 115/84
[2023-10-31] MEDS: LOVENOX SC (17:26)
[2023-10-31] MEDS: NEUTRA-PHOS POWDER PACKET PO (17:27)
--- NOTE | 2023-10-31 17:49 | PTCARENOTE ---
Pt refusing 1800 medications. Pt educated on benefits of medications. Dr. Murphy notified. Care ongoing.
[2023-10-31] MEDS: REMERON 30 MG PO (20:52)
[2023-10-31 23:10] VITALS: BP 108/73
[2023-11-01] MEDS: DUONEB 3 ML INH (02:36)
[2023-11-01] MEDS: SYNTHROID 50 MCG PO (05:40)
[2023-11-01 06:00] VITALS: BMI 13.6
[2023-11-01 06:46] LABS: Blood Urea Nitrogen 12 mg/dl (7-17); Calcium 9.7 mg/dl (8.4-10.2); Carbon Dioxide 30 mmol/L (22-30); Chloride 99 mmol/L (98-107); Estimated Creatinine Clearance 45 ml/min; Glucose 105 mg/dl (70-99); Sodium 144 mmol/L (135-145); eGFR > 60.00
[2023-11-01 07:26] VITALS: BP 112/82
[2023-11-01] MEDS: XANAX 0.25 MG PO (08:09)
[2023-11-01] MEDS: MARINOL 2.5 MG PO (08:10)
[2023-11-01] MEDS: ZOLOFT 100 MG PO (08:10)
[2023-11-01] MEDS: ProAmatine 5 MG PO ×2 (08:11→13:25)
[2023-11-01] MEDS: NEUTRA-PHOS POWDER PACKET 250 MG PO ×3 (08:11→18:31)
[2023-11-01] MEDS: PEPCID PO (08:12)
[2023-11-01] MEDS: KCL PO (08:12)
[2023-11-01] MEDS: VENTOLIN NEBULES 2.5 MG INH ×2 (08:40→14:32)
[2023-11-01] MEDS: SPIRIVA RESPIMAT 2.5 MCG 2 PUFF INH (08:59)
[2023-11-01] MEDS: SYMBICORT 80/4.5 MCG INHALER 2 PUFF INH (08:59)
[2023-11-01 10:00] VITALS: PULSE 111; PULSE 125; O2SAT 97
[2023-11-01 10:05] VITALS: PULSE 111; O2SAT 97
--- NOTE | 2023-11-01 12:39 | CM ---
CM reviewed chart, discussed with Hospitalist. CM met with patient in nursing station. Patient from [facility], PT/OT recommending SNF. CM spoke with Kristina, able to offer patient a bed, [facility], faxed to
[phone], pending ref number [id number]. CM will continue to follow for all discharge planning needs.
Plan; [facility] SNF pending auth approval.
--- NOTE | 2023-11-01 13:43 | W.PN.HOSP.TC ---
Addendum entered and electronically signed by Sylvain Kennedy MD 11/01/23 16:06:
discussed with sis-in-law and brother, pt is a DNR
Original Note:
Today's Communication/Plan
-
recheck labs in AM
potential dc to SNF next 24 hrs
Assessment / Plan
Assessment / Plan
Severe Protein Calorie Malnutrition of chronic illness
Hypophosphatemia
-Consult Dietary-document po intake started calorie count
-Remeron increased and Marinol added too.
-May require assistance with feeding
-Started on neutra-phos
-dietary following .Protein supplements added too
Acute/Severe Hypokalemia
-Patient does not appears to be taking any potassium wasting medications
-resolved
TME possibly due to transient hypoxia vs hypokalemia vs. underlying cognitive disorder worsening vs. medication related
-Monitor mental status
-CT head The ventricles are normal in size, configuration, and position for age. There is no intra- or extra-axial mass, hemorrhage, or fluid collection. No areas of abnormal mass effect or attenuation are noted. There is mild subcortical, deep,
and periventricular white matter low-attenuation, compatible with changes of chronic small vessel ischemic disease. Visualized paranasal sinuses are free of mucosal disease. No depressed calvarial fracture. My reading is: significant brain atrophic
changes
-seems probably at baseline at this point
Mild hypernatremia likely 2/2 decrease oral intake
-resolved
Chronic Hypoxic Respiratory Failure secondary to Severe Emphysema
-Continue supplemental oxygen with goal pulse ox 90-92%, baseline 2L per prior records
-Continue Trelegy
Chronic Hypotension
-Continue midodrine
Hypothyroidism
-Continue levothyroxine
Anxiety/Depression/Insomnia
-Hold Trazodone due to change in mental status
-Continue Zoloft
-Increase Remeron to 30mg HS
-Decrease Xanax 0.25mg BID
Hypophosphatemia
-neutraphos started
GERD
-Change Protonix to Pepcid
DVT proph: Lovenox
Dr. Murphy discussed with [id number] over the phone in details on 10/29. Explained about poor prognosis and patient with significant decreased p.o. appetite and poor mentation. If no improvement with nutrition status will need to consider
hospice and family understands and would be agreeable. Was on hospice in the past and graduated it from it years ago. manager terminal prognosis poor. Attempted to call both numbers on chart, no answer. Reviewed with CM
Anticipated Discharge: Within 24 hours
Subjective/Interval History
-
Date of Service: November 01, 2023
Appears comfortable
Objective Data
-
Labs:
Laboratory Results
11/01/23
06:00
Sodium 144
Potassium 4.0
Chloride 99
Carbon Dioxide 30
BUN 12
Creatinine 0.5 L
Glucose 105 H
Calcium 9.7
Vital Signs:
Vital Signs
Temp Pulse Resp BP Pulse Ox
98.5 F 117 20 113/71 91
11/01/23 07:26 11/01/23 13:25 11/01/23 08:43 11/01/23 13:25 11/01/23 08:43
I&O
10/31/23 11/01/23 11/02/23
06:59 06:59 06:59
Intake Total 620 / 620 960 / 960
Balance 620 / 620 960 / 960
Review of Systems
-
Unable to obtain full review of systems at this time due to: Dementia
History Source: Coordinated Provider
Constitutional: Denies Fever
EENT: Reports No Symptoms Reported
Respiratory: Reports No Symptoms; Denies Trouble Breathing (on 4 L/M SaO2 is 97%)
Cardiac: Reports No Symptoms
Abdomen/GI: Reports No Symptoms
Genitourinary: Reports No Symptoms
Physical Exam
-
General: Well Developed and Appears Chronically Ill; Negative Well Nourished
HEENT: Normocephalic, Atraumatic and Other (temporal muscle wasting)
Respiratory: Non Labored Respirations and Other (COPD changes)
Cardiac: Regular Rhythm and S1/S2
GI: Soft, Nontender and Nondistended
Musculoskeletal: No Clubbing, No Cyanosis, No Edema and Other (severe muscular atrophy)
[2023-11-01] MEDS: ProAmatine PO (18:27)
[2023-11-01] MEDS: LOVENOX 30 MG SC (18:30)
[2023-11-01] MEDS: SYMBICORT 80/4.5 MCG INHALER INH (19:23)
[2023-11-01] MEDS: XANAX PO (23:11)
[2023-11-01] MEDS: REMERON PO (23:11)
[2023-11-01] MEDS: NEUTRA-PHOS POWDER PACKET PO (23:11)
[2023-11-01 23:23] VITALS: BP 141/79
[2023-11-02] MEDS: SYNTHROID 50 MCG PO (05:16)
[2023-11-02] MEDS: SYMBICORT 80/4.5 MCG INHALER 2 PUFF INH (07:41)
[2023-11-02] MEDS: SPIRIVA RESPIMAT 2.5 MCG 2 PUFF INH (07:42)
[2023-11-02 08:08] LABS: % Basophils 0.5 % (0-2); % Eosinophils 0.5 % (0-6); % Immature Granulocytes 0.5 % (0-0.5); % Lymphocytes 12.4 % (20.5-51.1); % Monocytes 7.8 % (1.7-9.3); % Neutrophils 78.3 % (42.2-75.2); Absolute Lymphocytes 0.8 10^3/uL (1.2-3.4); Absolute Monocytes 0.5 10^3/uL (0.1-0.6); Absolute Neutrophils 4.8 10^3/uL (1.4-6.5); Hematocrit 38.3 % (37.0-47.0); Hemoglobin 12.5 g/dL (12.0-16.0); Mean Corp Hgb Conc. 32.6 g/dL (33.0-37.0); Mean Corpuscular Hgb 30.9 pg (27.0-31.0); Mean Corpuscular Volume 94.6 fL (81.0-99.0); Mean Platelet Volume 10.6 fL (7.4-10.4); Nucleated Red Blood Cells % 0 %; Platelet Count 331 10^3/uL (130-400); Red Blood Cell Count 4.05 10^6/uL (4.20-5.40); Red Cell Dist. Width 13.5 % (11.5-14.5); White Blood Cell Count 6.1 10^3/uL (4.8-10.8)
[2023-11-02 08:26] LABS: ALT (SGPT) 29 U/L (0-35); AST (SGOT) 36 U/L (14-36); Albumin 4.4 g/dl (3.5-5.0); Alkaline Phosphatase 90 U/L (38-126); Blood Urea Nitrogen 28 mg/dl (7-17); Calcium 9.6 mg/dl (8.4-10.2); Carbon Dioxide 24 mmol/L (22-30); Chloride 98 mmol/L (98-107); Estimated Creatinine Clearance 34 ml/min; Glucose 128 mg/dl (70-99); Potassium 3.9 mmol/L (3.5-5.1); Sodium 144 mmol/L (135-145); Total Bilirubin 0.7 mg/dl (0.2-1.3); Total Protein 7.3 g/dl (6.3-8.2); eGFR > 60.00
[2023-11-02 09:40] VITALS: BP 145/89
[2023-11-02] MEDS: PEPCID 20 MG PO (09:43)
[2023-11-02] MEDS: ZOLOFT 100 MG PO (09:43)
[2023-11-02] MEDS: KCL 20 MEQ PO (09:43)
[2023-11-02] MEDS: MARINOL 2.5 MG PO (09:43)
[2023-11-02] MEDS: XANAX 0.25 MG PO (09:43)
[2023-11-02] MEDS: ProAmatine PO ×3 (09:44→17:27)
[2023-11-02] MEDS: NEUTRA-PHOS POWDER PACKET 250 MG PO ×3 (09:44→17:28)
--- NOTE | 2023-11-02 12:22 | W.PN.HOSP.TC ---
Today's Communication/Plan
-
dc to SNF
Assessment / Plan
Assessment / Plan
Severe Protein Calorie Malnutrition of chronic illness. Pulmonary cachexia
Hypophosphatemia
-Remeron increased and
will stop Marinol, no apparent improvement
-May require assistance with feeding
-Started on neutra-phos
-dietary following .Protein supplements added too
Acute/Severe Hypokalemia
-Patient does not appears to be taking any potassium wasting medications
-resolved. K 3.9
Progressive underlying cognitive disorder worsening vs. medication related
-Monitor mental status
-CT head The ventricles are normal in size, configuration, and position for age. There is no intra- or extra-axial mass, hemorrhage, or fluid collection. No areas of abnormal mass effect or attenuation are noted. There is mild subcortical, deep,
and periventricular white matter low-attenuation, compatible with changes of chronic small vessel ischemic disease. Visualized paranasal sinuses are free of mucosal disease. No depressed calvarial fracture. My reading is: significant brain atrophic
changes
-seems probably at baseline at this point
Mild hypernatremia likely 2/2 decrease oral intake
-resolved
Chronic Hypoxic Respiratory Failure secondary to Severe Emphysema
-Continue supplemental oxygen with goal pulse ox 90-92%, baseline 2L per prior records
-Continue Trelegy
Chronic Hypotension
-Continue midodrine
Hypothyroidism
-Continue levothyroxine
Anxiety/Depression/Insomnia
-Hold Trazodone due to change in mental status
-Continue Zoloft
-Increase Remeron to 30mg HS
-Decrease Xanax 0.25mg BID
Hypophosphatemia
-neutraphos started
GERD
-Change Protonix to Pepcid
DVT proph: Lovenox
Dr. Murphy discussed with [id number] over the phone in details on 10/29. Explained about poor prognosis and patient with significant decreased p.o. appetite and poor mentation. If no improvement with nutrition status will need to consider
hospice and family understands and would be agreeable. Was on hospice in the past and graduated it from it years ago.
Met with son and d-i-l with extensive discussion 10/31. Pt was to be DNR, family was surprised was not ordered and this changed in computer.
Plan is to dc to SNF ([facility] with potential transition to Hospice eventually.
Anticipated Discharge: Today
Subjective/Interval History
-
Date of Service: November 02, 2023
Appears comfortable
Objective Data
-
Labs:
Laboratory Results
11/02/23
07:23
WBC 6.1
Hgb 12.5
Hct 38.3
Plt Count 331 D
Sodium 144
Potassium 3.9
Chloride 98
Carbon Dioxide 24
BUN 28 H
Creatinine 0.8
Glucose 128 H
Calcium 9.6
Total Bilirubin 0.7
AST 36
ALT 29
Alkaline Phosphatase 90
Vital Signs:
Vital Signs
Temp Pulse Resp BP Pulse Ox
98.3 F 113 18 145/89 86
11/02/23 09:40 11/02/23 09:40 11/02/23 09:40 11/02/23 09:40 11/02/23 07:58
I&O
11/01/23 11/02/23 11/03/23
06:59 06:59 06:59
Intake Total 960 / 960 480 / 480
Output Total 50 / 50
Balance 960 / 960 430 / 430
Review of Systems
-
Unable to obtain full review of systems at this time due to: Dementia
History Source: Coordinated Provider
Constitutional: Denies Fever
EENT: Reports No Symptoms Reported
Respiratory: Reports No Symptoms; Denies Trouble Breathing (on 4 L/M SaO2 is 97%)
Cardiac: Reports No Symptoms
Abdomen/GI: Reports No Symptoms
Genitourinary: Reports No Symptoms
Physical Exam
-
General: Well Developed, No Apparent Distress and Cachectic
HEENT: Normocephalic, Atraumatic and Other (temporal muscle wasting)
Respiratory: Non Labored Respirations and Other (COPD changes)
Cardiac: Regular Rhythm and S1/S2
GI: Soft, Nontender and Nondistended
Musculoskeletal: No Clubbing, No Cyanosis, No Edema and Other (severe muscular atrophy)
--- NOTE | 2023-11-02 12:45 | CM ---
Addendum entered by Anabella Jones 11/02/23 14:52:
Transport changed to 6:00 p.m. Kristina at [facility] updated. in law [facility] updated.
[facility]:
Report: [phone]

Original Note:
CM received call from patients insurance, auth approved 10/31-11/02, auth #[id number], next review to Patrice Pablo ([phone]). CM provided auth information to Kristina at [facility], aware patient was in nursing station yesterday/medsitter today.
Ambulance transport scheduled for 3:00 p.m. Phone call to patients in [facility], provided with transportation time, reviewed IMM with Judie over phone. CM will continue to follow for all discharge planning needs.
Plan; [facility], 3:00 p.m. ambulance transport.
[2023-11-02 13:02] VITALS: BP 124/83
[2023-11-02 15:22] VITALS: BP 138/88
[2023-11-02] MEDS: VENTOLIN NEBULES 2.5 MG INH (16:09)
[2023-11-02] MEDS: LOVENOX 30 MG SC (17:29)
--- NOTE | 2023-11-02 18:58 | W.DS.TRANS ---
DC Summary - [employer]
-
Discharge Instructions:
Discharge Diagnosis/Procedures Pulmonary Cachexia, COPD
Diet Regular
Additional Diets with dietary supplements (Ensure or equivalent)
Activity With assistance
Driving Restrictions No driving
Bathing Restrictions None
Blood Work CBC, CMP, Phosphorus level in 2 weeks
Instructions:
Stand-Alone Forms:
Changes to Home Medications: Yes
Discharge Medications:
DC Medications w/original date entered in [facility]
alendronate 70 mg tablet (Fosamax) 70 mg PO SA OSTEOPOROSIS 06/17/22
fluticasone fur. 100 mcg-umeclid 62.5 mcg-vilant 25 mcg inhalat.powder (Trelegy Ellipta) 1 inh inhalation R DAILY Lung/breathing issues 06/17/22
folic acid 1 mg tablet 1 mg PO DAILY Supplement 06/17/22
guaifenesin 100 mg/5 mL oral liquid 200 mg PO Q6HPRN PRN cough 06/17/22
levothyroxine 50 mcg tablet (Synthroid) 50 mcg PO DAILY Thyroid 06/17/22
sertraline 100 mg tablet 100 mg PO DAILY Depression 06/17/22
acetaminophen 325 mg tablet (Tylenol) 650 mg PO Q6HPRN PRN mild pain/temp>100F 12/04/22
albuterol sulfate 90 mcg/actuation aerosol inhaler 2 puff inhalation R Q4HPRN PRN sob 12/04/22
cyclobenzaprine 10 mg tablet 10 mg PO BID Muscle Spasms 12/04/22
mirtazapine 15 mg tablet (Remeron) 15 mg PO HS mental health/sleep 12/04/22
trazodone 50 mg tablet 75 mg PO HS mental health/sleep 12/04/22
cyanocobalamin (vitamin B-12) 500 mcg tablet 1,000 mcg PO DAILY 10/27/23
food supplemt, lactose-reduced 1 ea PO BID 10/27/23
loperamide 2 mg tablet 2 mg PO [id number] PRN diarrhea 10/27/23
midodrine 5 mg tablet 5 mg PO TID 10/27/23
potassium chloride 20 mEq/15 mL oral liquid 20 meq PO DAILY 10/27/23
famotidine 20 mg tablet 20 mg PO DAILY #0 tabs 11/02/23
potassium, sodium phosphates 280 mg-160 mg-250 mg oral powder packet 1 packet PO [facility] Electrolyte Repletion #100 ea 11/02/23
Home Medication Changes
Sodium Phosphate added
Xanax stopped
Pending Results: No
[2023-11-02] MEDS: SYMBICORT 80/4.5 MCG INHALER INH (19:26)
== END 2023-11-02 19:29 | DRG 640 ==
LOC: 4 WEST ACU 22:09
PROVIDERS: Clinical Nurse Specialist Family Health; Hospitalist; Physician Assistant Medical; ADMITTING PHYSICIAN Hospitalist; ATTENDING PHYSICIAN Internal Medicine; EMERGENCY PHYSICIAN Emergency Medicine; FAMILY PHYSICIAN Internal Medicine
DX: E87.6 Hypokalemia (principal); E43 Unspecified severe protein-calorie malnutrition; G92.8 Other toxic encephalopathy; J96.11 Chronic respiratory failure with hypoxia; F03.93 Unspecified dementia, unspecified severity, with mood disturbance; R64 Cachexia; Z68.1 Body mass index [BMI] 19.9 or less, adult; Z11.52 Encounter for screening for COVID-19; E87.0 Hyperosmolality and hypernatremia; I95.89 Other hypotension; E03.9 Hypothyroidism, unspecified; F32.A Depression, unspecified; F41.0 Panic disorder [episodic paroxysmal anxiety]; F41.1 Generalized anxiety disorder; K21.9 Gastro-esophageal reflux disease without esophagitis; Z87.891 Personal history of nicotine dependence; E83.39 Other disorders of phosphorus metabolism; Z66 Do not resuscitate; T50.905A Adverse effect of unspecified drugs, medicaments and biological substances, initial encounter
CPT/HCPCS: 51701; 70450; 71046; 80048; 80053; 81003; 82570; 83605; 83735; 83930; 83935; 84100; 84132; 84133; 84443; 84484; 85025; 85027; 87811; 93005; 94640; 96361; 96374; 97163; 97166; 97530; 97535; 99285

== ENCOUNTER → 2023-11-08 11:33 | Outpatient (REF) | payer MEDICARE, SELFPAY ==
[2023-11-08 12:26] LABS: Hematocrit 37.2 % (37.0-47.0); Hemoglobin 11.7 g/dL (12.0-16.0); Mean Corp Hgb Conc. 31.5 g/dL (33.0-37.0); Mean Corpuscular Hgb 30.8 pg (27.0-31.0); Mean Corpuscular Volume 97.9 fL (81.0-99.0); Mean Platelet Volume 11.1 fL (7.4-10.4); Platelet Count 273 10^3/uL (130-400); Red Cell Dist. Width 13.3 % (11.5-14.5); White Blood Cell Count 6.3 10^3/uL (4.8-10.8)
[2023-11-08 12:47] LABS: ALT (SGPT) 27 U/L (0-35); AST (SGOT) 26 U/L (14-36); Albumin 3.6 g/dl (3.5-5.0); Alkaline Phosphatase 68 U/L (38-126); Blood Urea Nitrogen 22 mg/dl (7-17); Carbon Dioxide 35 mmol/L (22-30); Chloride 95 mmol/L (98-107); Glucose 170 mg/dl (70-99); Magnesium 1.9 mg/dl (1.6-2.3); Phosphorus 2.7 mg/dl (2.5-4.5); Potassium 3.1 mmol/L (3.5-5.1); Sodium 139 mmol/L (135-145); Total Bilirubin 0.5 mg/dl (0.2-1.3); Total Protein 6.3 g/dl (6.3-8.2); eGFR > 60.00
== END ==
LOC: OLABWHC 11:33
PROVIDERS: ATTENDING PHYSICIAN Family Medicine
DX: E43 Unspecified severe protein-calorie malnutrition (principal); J96.21 Acute and chronic respiratory failure with hypoxia; I10 Essential (primary) hypertension
CPT/HCPCS: 36415; 80053; 83735; 84100; 85027